=== PATIENT | male | born 1945 | race Caucasian/White ===

== ENCOUNTER 2016-12-02 10:31 | Inpatient (IN) | payer MEDICARE ==
[~2016-12-02] VITALS: Ht 175.3 cm; Wt 76.5 kg
--- NOTE | 2016-12-02 11:11 | RAD ---
Indication change in mental status. Suspect CVA. Protocol study. A single view of the chest was obtained. Comparison is made to an examination 03/08/2014. Heart and pulmonary vessels are unremarkable. Bipolar cardiac pacing device is noted. The lungs are clear. There is no pleural fluid or pneumothorax. IMPRESSION:: No acute finding apparent in the chest
--- NOTE | 2016-12-02 11:29 | EKG ---
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
--- NOTE | 2016-12-02 12:07 | RAD ---
Clinical indications: Altered mental status today. Comparison: March 08, 2014. Technique: Noncontrast axial cross sectional scanning of the head was performed. PQRS Compliance Statement: One or more of the following individualized dose reduction techniques were utilized for this examination: 1. Automated exposure control 2. Adjustment of the mA and/or kV according to patient size 3. Use of iterative reconstruction technique Findings: No acute intracranial hemorrhage or midline shift or mass-effect or hydrocephalus or extra-axial fluid collection is seen. Chronic periventricular white matter hypodensity seen consistent with chronic small vessel ischemic disease which is stable. No new focal hypodense area or sulci effacement is seen to indicate an acute infarct or edema radiographically. Generalized atrophy is again evident. No skull fracture or pneumocephalus is seen. There is moderate nodular mucosal thickening of the upper right maxillary sinus which is a new finding. The maxillary sinuses are not completely seen in this study. There is progressive opacification of the anterior right ethmoid sinus. Impression: No acute intracranial abnormality is seen. Progressive right maxillary and ethmoid sinusitis.
[2016-12-02 12:19] LABS: BASO % 1 % (0-3); EOS % 2 % (0-3); HEMATOCRIT 35.6 % (39.0-53.0); LYMPH # 0.5 x10^3/uL (1.0-4.8); LYMPH % 16 % (24-48); MEAN CORPUSCULAR HEMOGLOBIN 31 pg (25-35); MEAN CORPUSCULAR HGB CONC 34 g/dL (31-37); MEAN CORPUSCULAR VOLUME 92 fL (79-100); MONO % 17 % (0-9); NEUT % 65 % (31-73); PLATELET COUNT 95 x10^3/uL (140-400); RED BLOOD COUNT 3.85 x10^6/uL (4.30-5.70); RED CELL DISTRIBUTION WIDTH 14.1 % (11.5-14.5); WHITE BLOOD COUNT 3.3 x10^3/uL (4.0-11.0)
[2016-12-02 12:26] LABS: CALCIUM 8.7 mg/dL (8.5-10.1); CREATININE 0.6 mg/dL (0.7-1.3); GFR 132.4; POTASSIUM 3.4 mmol/L (3.5-5.1)
--- NOTE | 2016-12-02 12:29 | PHYS DOC ---
Past Medical History Past Medical History: COPD, CVA, Hypertension, Other Additional Past Medical Histor: emphysema, home o2, falls, chronic back and neck pain Past Surgical History: Other Additional Past Surgical Histo: hernia repair, ankle sx, back and neck sx Alcohol Use: None Drug Use: None Adult General Chief Complaint Chief Complaint: NEURO SYMPTOMS/DEFICITS HPI HPI 71-year-old male who lives at home with his presents secondary to concern about stroke. This morning when the tried to get him up he typically can help get himself dressed but he was listing to the right and unable to move right side of his body to help his . She then called his daughter came to the house and felt like he may have had a stroke. At baseline the patient is primarily bed bound but can get up at times and walked with a walker. Patient denies any headache. Patient really is unable to provide much history secondary to what sounds like dementia. There is been no report of fever chills or sweats. No nausea vomiting or diarrhea. [] Review of Systems Review of Systems Review of systems is unable to be obtained secondary to altered mental status Current Medications Current Medications Current Medications Medications (Trade) Dose Ordered Sig/Checo Start Time Stop Time Status Last Admin Dose Admin Acetaminophen (Tylenol) 650 mg PRN Q4HRS PRN 12/02/16 12:30 12/03/16 12:29 Ondansetron HCl (Zofran) 4 mg PRN Q8HRS PRN 12/02/16 12:30 12/03/16 12:29 Allergies Allergies Allergies Coded Allergies Type Severity Reaction Last Updated Verified No Known Drug Allergies 03/08/14 No Physical Exam Physical Exam Constitutional: Well developed, well nourished, no acute distress, non-toxic appearance. [] HENT: Normocephalic, atraumatic, bilateral external ears normal, oropharynx moist, no oral exudates, nose normal. [] Eyes: PERRLA, EOMI, conjunctiva normal, no discharge. [] Neck: Normal range of motion, no tenderness, supple, no stridor. [] Cardiovascular:Heart rate regular rhythm, no murmur [] Lungs & Thorax: Bilateral breath sounds clear to auscultation [] Abdomen: Bowel sounds normal, soft, no tenderness, no masses, no pulsatile masses. [] Skin: Warm, dry, no erythema, no rash. [] Back: No tenderness, no CVA tenderness. [] Extremities: No tenderness, no cyanosis, no clubbing, ROM intact, no edema. [] Neurologic: Alert and oriented X 3, normal motor function, normal sensory function, no focal deficits noted. [] Psychologic: Affect normal, judgement normal, mood normal. [] Current Patient Data Vital Signs Vital Signs Date Time Temp Pulse Resp B/P Pulse Ox O2 Delivery O2 Flow Rate FiO2 12/02/16 11:33 78 21 162/108 97 Nasal Cannula 3 12/02/16 10:31 98.7 98.7 Lab Values Laboratory Tests Test 12/02/16 12:00 White Blood Count 3.3x10^3/uL (4.0-11.0) L Red Blood Count 3.85x10^6/uL (4.30-5.70) L Hemoglobin 12.0g/dL (13.0-17.5) L Hematocrit 35.6% (39.0-53.0) L Mean Corpuscular Volume 92fL (79-100) Mean Corpuscular Hemoglobin 31pg (25-35) Mean Corpuscular Hemoglobin Concent 34g/dL (31-37) Red Cell Distribution Width 14.1% (11.5-14.5) Platelet Count 95x10^3/uL (140-400) L Neutrophils (%) (Auto) 65% (31-73) Lymphocytes (%) (Auto) 16% (24-48) L Monocytes (%) (Auto) 17% (0-9) H Eosinophils (%) (Auto) 2% (0-3) Basophils (%) (Auto) 1% (0-3) Neutrophils # (Auto) 2.1x10^3uL (1.8-7.7) Lymphocytes # (Auto) 0.5x10^3/uL (1.0-4.8) L Monocytes # (Auto) 0.5x10^3/uL (0.0-1.1) Eosinophils # (Auto) 0.1x10^3/uL (0.0-0.7) Basophils # (Auto) 0.0x10^3/uL (0.0-0.2) Prothrombin Time 14.1SEC (11.7-14.0) H Prothrombin Time INR 1.2 (0.8-1.1) H Sodium Level 135mmol/L (136-145) L Potassium Level 3.4mmol/L (3.5-5.1) L Chloride Level 92mmol/L (98-107) L Carbon Dioxide Level 40mmol/L (21-32) H Anion Gap 3 (6-14) L Blood Urea Nitrogen 11mg/dL (8-26) Creatinine 0.6mg/dL (0.7-1.3) L Estimated GFR (Cockcroft-Gault) 132.4 BUN/Creatinine Ratio 18 (6-20) Glucose Level 89mg/dL (70-99) Calcium Level 8.7mg/dL (8.5-10.1) Total Bilirubin 0.9mg/dL (0.2-1.0) Aspartate Amino Transferase (AST) 18U/L (15-37) Alanine Aminotransferase (ALT) 12U/L (16-63) L Alkaline Phosphatase 52U/L (46-116) Creatine Kinase 107U/L (39-308) Troponin I Quantitative < 0.017ng/mL (0.000-0.055) Total Protein 6.4g/dL (6.4-8.2) Albumin 2.9g/dL (3.4-5.0) L Albumin/Globulin Ratio 0.8 (1.0-1.7) L Vitamin B12 Level 452pg/mL (211-946) 25-Hydroxy Vitamin D Total 41.4ng/mL (30.0-100.0) Thyroid Stimulating Hormone (TSH) 0.744uIU/mL (0.358-3.74) Laboratory Tests 12/02/16 12:00 Laboratory Tests 12/02/16 12:00 EKG EKG [] Interpretation Time: EKG: Normal sinus rhythm left anterior fascicular block no obvious ischemic changes Radiology/Procedures Radiology/Procedures [] Impressions: PROCEDURE: HEAD WO CONTRAST Clinical indications: Altered mental status today. Comparison: March 08, 2014. Technique: Noncontrast axial cross sectional scanning of the head was performed. PQRS Compliance Statement: One or more of the following individualized dose reduction techniques were utilized for this examination: 1. Automated exposure control 2. Adjustment of the mA and/or kV according to patient size 3. Use of iterative reconstruction technique Findings: No acute intracranial hemorrhage or midline shift or mass-effect or hydrocephalus or extra-axial fluid collection is seen. Chronic periventricular white matter hypodensity seen consistent with chronic small vessel ischemic disease which is stable. No new focal hypodense area or sulci effacement is seen to indicate an acute infarct or edema radiographically. Generalized atrophy is again evident. No skull fracture or pneumocephalus is seen. There is moderate nodular mucosal thickening of the upper right maxillary sinus which is a new finding. The maxillary sinuses are not completely seen in this study. There is progressive opacification of the anterior right ethmoid sinus. Impression: No acute intracranial abnormality is seen. Progressive right maxillary and ethmoid sinusitis. Course & Med Decision Making Course & Med Decision Making Pertinent Labs and Imaging studies reviewed. (See chart for details) [ED course: Evaluation reveals a frail 71-year-old male who presented with concern for stroke. On arrival the patient was able to move his right arm and leg and follow commands adequately. If he had weakness on the right side is morning and that was the primary concern it has totally resolved. I do not believe the patient is a candidate for TPA. I do, however, feel like the patient needs to be admitted evaluated by PT OT and a discussion with the family about long-term placement for the patient. Patient and family are in agreement with this.] Dragon Disclaimer Dragon Disclaimer This electronic medical record was generated, in whole or in part, using a voice recognition dictation system. Departure Departure Impression: Primary Impression: Altered mental status Disposition: 09 ADMITTED INPATIENT Condition: STABLE Referrals: CARA FITZGERALD MD (PCP) Problem Qualifiers Primary Impression: Altered mental status Altered mental status type: unspecified Qualified Code: R41.82 - Altered mental status, unspecified LUPIS BURKS DO Dec 02, 2016 12:29
[2016-12-02] MEDS ORDERED: ACETAMINOPHEN 325 MG TABLET. PO PRN (12:30)
[2016-12-02] MEDS ORDERED: ONDANSETRON PF 4 MG/2 ML VIAL. IV PRN (12:30)
[2016-12-02 12:32] LABS: ALBUMIN 2.9 g/dL (3.4-5.0); ALBUMIN/GLOBULIN RATIO 0.8 (1.0-1.7); TOTAL BILIRUBIN 0.9 mg/dL (0.2-1.0); TOTAL PROTEIN 6.4 g/dL (6.4-8.2)
[2016-12-02 12:37] LABS: INR 1.2 (0.8-1.1); PROTHROMBIN TIME PATIENT 14.1 SEC (11.7-14.0)
[2016-12-02 13:24] LABS: BILIRUBIN,URINE SMALL (NEG); GLUCOSE,URINE NEGATIVE (NEG); NITRITE,URINE NEGATIVE (NEG); PROTEIN,URINE NEGATIVE (NEG-TRACE)
[2016-12-02 13:35] LABS: BACTERIA,URINE 0 /HPF (0-FEW); RBC,URINE 0 /HPF (0-2); SQUAMOUS EPITHELIAL CELL,UR FEW /LPF; WBC,URINE 0 /HPF (0-4)
[2016-12-02 15:02] VITALS: BP 163/89
[2016-12-02 15:04] VITALS: BP 163/89
--- NOTE | 2016-12-02 15:34 | ACF ---
Admission Forms Criteria MENTAL STATUS CHANGE Clinical Indications for Inpatient Care (Place 'X' for any and all applicable criteria): Ongoing inpatient care may be needed for ANY ONE of the following(1)(2)(3)(5)(6) : [X]I. Suspected serious etiology (eg, medical disorder, SAWMILL TALLY CLERK event) of mental status change [ ]II. Danger to self or others not manageable at lower level of care [ ]III. Grave disability (eg, inability to perform self care necessary at lower level of care) [ ]IV. Agitation or inappropriate behavior interfering with care for primary condition (eg, attempting to discontinue lines or drains prematurely, unable to cooperate with respiratory care) [ ]V. Delirium [A] [D][E] as described by ANY ONE of the following(26): [ ]a) Delirium due to alcohol or sedative [F] withdrawal [ ]b) Delirium of uncertain etiology that has not responded to appropriate empiric treatment [ ]c) Delirium that prevents performance of a life-sustaining function (eg, feeding or hydrating oneself) [ ]. General contraindications and/or Inappropriate clinical situations for Observational Care in patients with Mental Status Change, when ANY ONE of the following is required: [ ]a) Prediction of prolongation of LOS based on ANY ONE of the following may be considered as a contraindication for observational care 2, 3, 4, 5, 6, 7, 8, 9, 10, 11 [ ]i) Age > 65 yrs. [ ]ii) Patient arriving by ambulance [ ]iii) Patient with high acuity [ ]iv) Patient requiring vital sign monitoring [ ]v) Patient on IV medication [ ]b) Systolic blood pressures 180mmHg 3,12 [ ]c) Patient with altered mental status including delirium and other alteration of consciousness, (3) [ ]d) Patient whose discharge disposition will be to a care home home or rehabilitation home should not be managed in Emergency Department Observation Unit. CMS rule requires 3 days hospital stay before such placement.3,13 [ ]e) Patient with failure to thrive due to broad array of etiologies 3,16,17 [ ]f) Inability to ambulate 3,14 Extended stay beyond goal length of stay for the primary condition may be needed until ALL of the following are present(3)(5): [ ]a) Underlying medical etiology of mental status change is absent, or has been established and adequately treated [ ]b) Danger to self or others is absent or manageable at lower level of care. [ ]c) Behavior crisis management, including physical or chemical restraints, is not required or available at lower level of car [ ]d) Substance or alcohol withdrawal is absent or manageable at lower level of care. [ ]e) Behavioral symptoms (eg, agitation, somnolence, inappropriate behavior) are absent, or are manageable at lower level of care. The original [facility] content created by [facility] has been revised. The portions of the content which have been revised are identified through the use of italic text or in bold, and [facility] has neither reviewed nor approved the modified material. All other unmodified content is copyright [facility]. Please see references footnoted in the original [facility] edition 2016 Admission Criteria Met?: Yes MO GUTIÉRREZ Dec 02, 2016 15:34
--- NOTE | 2016-12-02 16:14 | PDOC2 ---
NEUROLOGY CONSULT Date of Admission Date of Admission DATE: 12/02/16 TIME: 16:01 Reason for Consult Reason for Consult: IMPRESSION: Worsening of right side weakness. CVA syndrome. Metabolic encephalopathy. Confusion. 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 HTN COPD O2 dependent. Chronic neck and back pain. Right maxillary and ethmoid sinusitis. RECOMMENDATIONS/PLAN: Repeat HCT in am. MRI is contraindicated due to pacemaker. Carotid A US + Doppler. Echo + Bubble study. Fasting lipid panel in a.m. Other labs: see orders. EEG Continue ASA 325 mg daily at the present time, will change to Plavix if has new stroke. Treat medical diseases. OT/PT. Discussed with his and son-in-law at bedside. HISTORY OF THE PRESENT ILLNESS: 71-y-old male patient with above medical diseases and old stroke with right side hemiparesis per his . He can walk with walker usually, but he was unable to get up this morning due to increased weakness inhis right side UE and LE. He was also noted by his to have mental status changes, confusion, and difficulty speaking to be brought to the ER. No new cranial nerve deficits. He is not a candidate of TPA due to onset time of symptoms was unknown. PAST MEDICAL HISTORY: Please see above. PAST SURGERY HISTORY: Pacemaker Placement Hernia Repair, ALLERGY: Reviewed. MEDICATIONS: Refer to [facility] FAMILY HISTORY: Non contributory. SOCIAL HISTORY: Lives at home. Denies current smoking, drinking, and illicit drug use. REVIEW OF SYSTEMS: Constitutional: No malnutrition, weight loss, cachexia. Head: No traumatic brain or head injury. Skin: No edema, or rash. Ear: No infection, tinnitus. Eyes: No vision loss or color blindness. Nose: No bleeding or purulent discharges. Hearing: Hearing decrease. Neck: Neck pain. Cardiac: Pacemaker Placement Pulmonary: No COPD. GI: No GI ulcer, GI bleeding. Urinary/genital: UTI. Endocrinologic: No cousin face, craniofacial dysmorphism, polydactyly, goiter Skeletomuscular: Chronic right side weakness. Neurological: see HP. Psychiatric: Denies drug use/abuse. Otherwise, not [id number] review of systems. PHYSICAL EXAMINATION: General appearance is in subacute distress. HEENT: Normocephalic and nontraumatic. Eyes, nose, ears, and throat are unremarkable. Neck is supple. No lymphadenopathy. No bruits are heard over the carotid artery. No crepitus. Cardiovascular: S1, S2, regular rate and rhythm. Pulmonary: Clear to auscultation bilaterally. Abdomen: Bowel sounds are positive. Extremities: No rash, lesions, or edema. No restriction of range of motion NEUROLOGICAL EXAMINATION: Awake. Confused. Not oriented to time, but knows place and person. PERRL. EOMI. CN: no focal findings. Muscle tone: Mildly increased. Muscle strength: 4+ right side, 5 lefts mohinder. DTR: 2- Plantar reflex: Neutral response bilaterally Gait: not examined in bed. Sensory exam: no acute abnormal findings. No obvious cerebellar signs elicited. Not able to perform F-T-N test. Current Medications Current Medications Current Medications Ondansetron HCl (Zofran) 4 mg PRN Q8HRS PRN IV NAUSEA/VOMITING; Start 12/02/16 at 12:30; Stop 12/03/16 at 12:29 Acetaminophen (Tylenol) 650 mg PRN Q4HRS PRN PO FEVER; Start 12/02/16 at 12:30; Stop 12/03/16 at 12:29 Allergies Allergies: Coded Allergies: No Known Drug Allergies (Unverified , 03/08/14) Vitals VITALS Vital Signs Date Time Temp Pulse Resp B/P Pulse Ox O2 Delivery O2 Flow Rate FiO2 12/02/16 15:04 98.9 68 18 163/89 99 Nasal Cannula 98.9 12/02/16 13:31 3 Labs Labs Laboratory Tests Test 12/02/16 12:00 12/02/16 13:00 White Blood Count 3.3x10^3/uL (4.0-11.0) Red Blood Count 3.85x10^6/uL (4.30-5.70) Hemoglobin 12.0g/dL (13.0-17.5) Hematocrit 35.6% (39.0-53.0) Mean Corpuscular Volume 92fL (79-100) Mean Corpuscular Hemoglobin 31pg (25-35) Mean Corpuscular Hemoglobin Concent 34g/dL (31-37) Red Cell Distribution Width 14.1% (11.5-14.5) Platelet Count 95x10^3/uL (140-400) Neutrophils (%) (Auto) 65% (31-73) Lymphocytes (%) (Auto) 16% (24-48) Monocytes (%) (Auto) 17% (0-9) Eosinophils (%) (Auto) 2% (0-3) Basophils (%) (Auto) 1% (0-3) Neutrophils # (Auto) 2.1x10^3uL (1.8-7.7) Lymphocytes # (Auto) 0.5x10^3/uL (1.0-4.8) Monocytes # (Auto) 0.5x10^3/uL (0.0-1.1) Eosinophils # (Auto) 0.1x10^3/uL (0.0-0.7) Basophils # (Auto) 0.0x10^3/uL (0.0-0.2) Prothrombin Time 14.1SEC (11.7-14.0) Prothromb Time International Ratio 1.2 (0.8-1.1) Sodium Level 135mmol/L (136-145) Potassium Level 3.4mmol/L (3.5-5.1) Chloride Level 92mmol/L (98-107) Carbon Dioxide Level 40mmol/L (21-32) Anion Gap 3 (6-14) Blood Urea Nitrogen 11mg/dL (8-26) Creatinine 0.6mg/dL (0.7-1.3) Estimated GFR (Cockcroft-Gault) 132.4 BUN/Creatinine Ratio 18 (6-20) Glucose Level 89mg/dL (70-99) Calcium Level 8.7mg/dL (8.5-10.1) Total Bilirubin 0.9mg/dL (0.2-1.0) Aspartate Amino Transf (AST/SGOT) 18U/L (15-37) Alanine Aminotransferase (ALT/SGPT) 12U/L (16-63) Alkaline Phosphatase 52U/L (46-116) Creatine Kinase 107U/L (39-308) Troponin I Quantitative < 0.017ng/mL (0.000-0.055) Total Protein 6.4g/dL (6.4-8.2) Albumin 2.9g/dL (3.4-5.0) Albumin/Globulin Ratio 0.8 (1.0-1.7) Thyroid Stimulating Hormone (TSH) 0.744uIU/mL (0.358-3.74) Urine Collection Type Unknown Urine Color [place] Urine Clarity Clear Urine pH 7.0 Urine Specific [place] 1.025 Urine Protein Negativemg/dL (NEG-TRACE) Urine Glucose (UA) Negativemg/dL (NEG) Urine Ketones (Stick) 15mg/dL (NEG) Urine Blood Negative (NEG) Urine Nitrite Negative (NEG) Urine Bilirubin Small (NEG) Urine Urobilinogen Dipstick 4.0mg/dL (0.2 mg/dL) Urine Leukocyte Esterase Small (NEG) Urine RBC 0/HPF (0-2) Urine WBC 0/HPF (0-4) Urine Squamous Epithelial Cells Few/LPF Urine Bacteria 0/HPF (0-FEW) Laboratory Tests Test 12/02/16 12:00 12/02/16 13:00 White Blood Count 3.3x10^3/uL (4.0-11.0) Red Blood Count 3.85x10^6/uL (4.30-5.70) Hemoglobin 12.0g/dL (13.0-17.5) Hematocrit 35.6% (39.0-53.0) Mean Corpuscular Volume 92fL (79-100) Mean Corpuscular Hemoglobin 31pg (25-35) Mean Corpuscular Hemoglobin Concent 34g/dL (31-37) Red Cell Distribution Width 14.1% (11.5-14.5) Platelet Count 95x10^3/uL (140-400) Neutrophils (%) (Auto) 65% (31-73) Lymphocytes (%) (Auto) 16% (24-48) Monocytes (%) (Auto) 17% (0-9) Eosinophils (%) (Auto) 2% (0-3) Basophils (%) (Auto) 1% (0-3) Neutrophils # (Auto) 2.1x10^3uL (1.8-7.7) Lymphocytes # (Auto) 0.5x10^3/uL (1.0-4.8) Monocytes # (Auto) 0.5x10^3/uL (0.0-1.1) Eosinophils # (Auto) 0.1x10^3/uL (0.0-0.7) Basophils # (Auto) 0.0x10^3/uL (0.0-0.2) Prothrombin Time 14.1SEC (11.7-14.0) Prothromb Time International Ratio 1.2 (0.8-1.1) Sodium Level 135mmol/L (136-145) Potassium Level 3.4mmol/L (3.5-5.1) Chloride Level 92mmol/L (98-107) Carbon Dioxide Level 40mmol/L (21-32) Anion Gap 3 (6-14) Blood Urea Nitrogen 11mg/dL (8-26) Creatinine 0.6mg/dL (0.7-1.3) Estimated GFR (Cockcroft-Gault) 132.4 BUN/Creatinine Ratio 18 (6-20) Glucose Level 89mg/dL (70-99) Calcium Level 8.7mg/dL (8.5-10.1) Total Bilirubin 0.9mg/dL (0.2-1.0) Aspartate Amino Transf (AST/SGOT) 18U/L (15-37) Alanine Aminotransferase (ALT/SGPT) 12U/L (16-63) Alkaline Phosphatase 52U/L (46-116) Creatine Kinase 107U/L (39-308) Troponin I Quantitative < 0.017ng/mL (0.000-0.055) Total Protein 6.4g/dL (6.4-8.2) Albumin 2.9g/dL (3.4-5.0) Albumin/Globulin Ratio 0.8 (1.0-1.7) Thyroid Stimulating Hormone (TSH) 0.744uIU/mL (0.358-3.74) Urine Collection Type Unknown Urine Color [place] Urine Clarity Clear Urine pH 7.0 Urine Specific [place] 1.025 Urine Protein Negativemg/dL (NEG-TRACE) Urine Glucose (UA) Negativemg/dL (NEG) Urine Ketones (Stick) 15mg/dL (NEG) Urine Blood Negative (NEG) Urine Nitrite Negative (NEG) Urine Bilirubin Small (NEG) Urine Urobilinogen Dipstick 4.0mg/dL (0.2 mg/dL) Urine Leukocyte Esterase Small (NEG) Urine RBC 0/HPF (0-2) Urine WBC 0/HPF (0-4) Urine Squamous Epithelial Cells Few/LPF Urine Bacteria 0/HPF (0-FEW) AMRITA CANSECO MD Dec 02, 2016 16:14
[2016-12-02] MEDS ORDERED: POTASSIUM CHLORIDE 20 MEQ TABLET.ER. PO ONE (16:30)
[2016-12-02] MEDS ORDERED: FINA5TAB4 PO (16:41)
[2016-12-02] MEDS ORDERED: NIFE30TA9 PO (16:41)
[2016-12-02] MEDS ORDERED: LIDO700A27 TP (16:41)
[2016-12-02] MEDS ORDERED: NITR0.4T SL (16:41)
[2016-12-02] MEDS ORDERED: HYDR12.53 PO (16:41)
[2016-12-02] MEDS ORDERED: CHOL10003 PO (16:41)
[2016-12-02] MEDS ORDERED: LOSA100T6 PO (16:41)
[2016-12-02] MEDS ORDERED: BRIM5DRO4 OP (16:41)
[2016-12-02] MEDS ORDERED: SENN1TAB37 PO (16:41)
[2016-12-02] MEDS ORDERED: DORZ10DR3 EACHEYE (16:41)
[2016-12-02] MEDS ORDERED: PROAIR HFA8.5 GM INH (16:41)
[2016-12-02] MEDS ORDERED: CARV25TA2 PO (16:41)
[2016-12-02] MEDS ORDERED: BUDE10.2 IH (16:41)
[2016-12-02] MEDS ORDERED: NICO4GUM3 BC (16:41)
[2016-12-02] MEDS ORDERED: VALP250D PO ×2 (16:41)
[2016-12-02] MEDS ORDERED: GABA-585 PO (16:41)
[2016-12-02] MEDS ORDERED: BUPR75TA6 PO (16:41)
[2016-12-02] MEDS ORDERED: LATA2.5D3 EACHEYE (16:41)
[2016-12-02] MEDS ORDERED: DULO60CA44 PO (16:41)
[2016-12-02] MEDS ORDERED: ASPI325T70 PO (16:41)
[2016-12-02] MEDS ORDERED: NON FORMULARY ITEM (Albuterol Sulfate (Proair Hfa Inhaler) 1 PUFF) INH PRN (19:00)
--- NOTE | 2016-12-02 19:02 | PDOC1 ---
History and Physical Date of Admission Date of Admission DATE: 12/02/16 TIME: 18:54 Identification/Chief Complaint Chief Complaint right arm weakness Source Source: Chart review, Patient History of Present Illness History of Present Illness MR. Avery awoke today with new right arm weakness, and was noted by family to be "listing to the right" Right sided weakness with difficulty ambulating timeline of onset was unclear, not t-PA candidate pt seen by Neuro, and right arm str is improving, but not at baseline he reports feeling improved Past Medical History Cardiovascular: HTN CENTRAL NERVOUS SYSTEM: CVA ENT: Other Renal/: Benign prostatic enlarg. Family History Family History: No Significant Social History Smoke: Quit ALCOHOL: none Drugs: None Current Problem List Problem List Problems Medical Problems: (1) Altered mental status Status: Acute Problems: Current Medications Current Medications Current Medications Ondansetron HCl (Zofran) 4 mg PRN Q8HRS PRN IV NAUSEA/VOMITING; Start 12/02/16 at 12:30; Stop 12/03/16 at 12:29 Acetaminophen (Tylenol) 650 mg PRN Q4HRS PRN PO FEVER; Start 12/02/16 at 12:30; Stop 12/03/16 at 12:29 Potassium Chloride (Klor-Con) 40 meq 1X ONCE PO Last administered on 12/02/16t 17:53; Start 12/02/16 at 16:30; Stop 12/02/16 at 16:31; Status DC Albuterol/ Ipratropium (Duoneb) 3 ml RTQID NEB ; Start 12/02/16 at 20:00 Active Scripts Active Reported Aspirin Buffered 325 Mg Tab (Aspirin/Calcium Carbonate/Mag) 325 Mg Tablet 325 Mg PO DAILY Bupropion Hcl 75 Mg Tablet 0.5 Tab PO DAILY Dorzolamide Hcl 10 Ml Drops 1 Drop EACHEYE BID Symbicort 160-4.5 Mcg Inhaler (Budesonide/Formoterol Fumarate) 10.2 Gm Hfa.aer.ad 2 Puff IH BID Brimonidine Tartrate 5 Ml Drops 5 Ml OP Proair Hfa Inhaler (Albuterol Sulfate) 8.5 Gm Hfa.aer.ad 1 Puff INH PRN Q6HRS PRN Latanoprost 2.5 Ml Drops 1 Drop EACHEYE QHS Valproic Acid (Valproate Sodium) 250 Mg/5 Ml Disp.syrin 500 Mg PO DAILY Valproic Acid (Valproate Sodium) 250 Mg/5 Ml Disp.syrin 750 Mg PO QHS Nitrostat (Nitroglycerin) 0.4 Mg Tab.subl 1 Tab SL UD Nifedipine Er (Nifedipine) 30 Mg Tablet.er 1 Tab PO BID Nicotine Gum (Nicotine Polacrilex) 4 Mg Gum 4 Mg BC Q1HR PRN Losartan Potassium 100 Mg Tablet 100 Mg PO DAILY Lidocaine 700 Mg Adh..patch 700 Mg TP Hydrochlorothiazide Capsule (Hydrochlorothiazide) 12.5 Mg Capsule 2 Cap PO DAILY Gabapentin 100 Mg Capsule 100 Mg PO QID Finasteride 5 Mg Tablet 1 Tab PO DAILY Duloxetine Hcl 60 Mg Capsule.dr 60 Mg PO DAILY Sennosides-Docusate Sodium Tab (Sennosides/Docusate Sodium) 1 Each Tablet 1 Each PO Vitamin D3 (Cholecalciferol (Vitamin D3)) 1,000 Unit Tablet 1 Tab PO DAILY Carvedilol 25 Mg Tablet 1 Tab PO BID Allergies Allergies: Coded Allergies: No Known Drug Allergies (Unverified , 03/08/14) ROS General: No: Appetite, Chills, Fatigue, Malaise, Night Sweats, Other PSYCHOLOGICAL ROS: No: Anxiety, Behavioral Disorder, Concentration difficultie , Decreased libido, Depression, Disorientation, Hallucinations, Hostility, Irritablity, Memory difficulties, Mood Swings, Obsessive thoughts, Other, Physical abuse, Sexual abuse, Sleep disturbances, Suicidal ideation Eyes: No Blurry vision, No Decreased vision, No Double vision, No Dry eyes, No Excessive tearing, No Eye Pain, No Itchy Eyes, No Loss of vision, No Other, No Photophobia, No Scotomata, No Uses contacts, No Uses glasses HEENT: No: Epistaxis, Heacaches, Hearing change, Nasal congestion, Nasal discharge, Oral lesions, Other, Sinus pain, Sneezing, Snoring, Sore Throat, Tinnitus, Vertigo, Visual Changes, Vocal changes Cardiovascular: No Chest Pain, No Edema, No Lt Headedness, No Orthopnea, No Other, No Palpitations, No Paroxysmal Noc. Dyspnea Gastrointestinal: No Abdominal Pain, No Constipation, No Diarrhea, No Hematochezia, No Melena, No Nausea, No Other, No Vomiting Genitourinary: No , No , No , No , No , No , No , No Discharge, No Dysuria, No Flank Pain, No Frequency, No Hematuria, No Incontinence, No Other, No Pain, No Retention, No Urgency Musculoskeletal: Yes Gait Disturbance, Yes Muscular Weakness, No Joint Pain, No Joint Stiffness, No Joint Swelling, No Muscle Pain, No Other, No Pain In:, No Swelling In: Neurological: Yes Gait Disturbance, No Behavorial Changes, No Bowel/Bladder ControlChng, No Confusion, No Dizziness, No Headaches, No Impaired Coord/balance, No Memory Loss, No Numbness/ Tingling, No Other, No Seizures, No Speech Problems, No Tremors, No Visual Changes, No Weakness Skin: No Acne, No Dry Skin, No Eczema, No Hair Changes, No Lumps, No Mole Changes, No Mottling, No Nail Changes, No Other, No Pruritus, No Rash, No Skin Lesion Changes Physical Exam General: Alert, Oriented X3, Cooperative, No acute distress HEENT: Atraumatic, PERRLA, EOMI, Mucous membr. 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, (5/5) but relatively very poor in relation to left hand, which was painfully strong, ) Psych/Mental Status: Mental status NL, Mood NL Vitals Vitals Vital Signs Date Time Temp Pulse Resp B/P Pulse Ox O2 Delivery O2 Flow Rate FiO2 12/02/16 15:04 98.9 68 18 163/89 99 Nasal Cannula 98.9 12/02/16 13:31 3 Labs Labs Laboratory Tests Test 12/02/16 12:00 12/02/16 13:00 White Blood Count 3.3x10^3/uL (4.0-11.0) Red Blood Count 3.85x10^6/uL (4.30-5.70) Hemoglobin 12.0g/dL (13.0-17.5) Hematocrit 35.6% (39.0-53.0) Mean Corpuscular Volume 92fL (79-100) Mean Corpuscular Hemoglobin 31pg (25-35) Mean Corpuscular Hemoglobin Concent 34g/dL (31-37) Red Cell Distribution Width 14.1% (11.5-14.5) Platelet Count 95x10^3/uL (140-400) Neutrophils (%) (Auto) 65% (31-73) Lymphocytes (%) (Auto) 16% (24-48) Monocytes (%) (Auto) 17% (0-9) Eosinophils (%) (Auto) 2% (0-3) Basophils (%) (Auto) 1% (0-3) Neutrophils # (Auto) 2.1x10^3uL (1.8-7.7) Lymphocytes # (Auto) 0.5x10^3/uL (1.0-4.8) Monocytes # (Auto) 0.5x10^3/uL (0.0-1.1) Eosinophils # (Auto) 0.1x10^3/uL (0.0-0.7) Basophils # (Auto) 0.0x10^3/uL (0.0-0.2) Prothrombin Time 14.1SEC (11.7-14.0) Prothromb Time International Ratio 1.2 (0.8-1.1) Sodium Level 135mmol/L (136-145) Potassium Level 3.4mmol/L (3.5-5.1) Chloride Level 92mmol/L (98-107) Carbon Dioxide Level 40mmol/L (21-32) Anion Gap 3 (6-14) Blood Urea Nitrogen 11mg/dL (8-26) Creatinine 0.6mg/dL (0.7-1.3) Estimated GFR (Cockcroft-Gault) 132.4 BUN/Creatinine Ratio 18 (6-20) Glucose Level 89mg/dL (70-99) Calcium Level 8.7mg/dL (8.5-10.1) Total Bilirubin 0.9mg/dL (0.2-1.0) Aspartate Amino Transf (AST/SGOT) 18U/L (15-37) Alanine Aminotransferase (ALT/SGPT) 12U/L (16-63) Alkaline Phosphatase 52U/L (46-116) Creatine Kinase 107U/L (39-308) Troponin I Quantitative < 0.017ng/mL (0.000-0.055) Total Protein 6.4g/dL (6.4-8.2) Albumin 2.9g/dL (3.4-5.0) Albumin/Globulin Ratio 0.8 (1.0-1.7) Thyroid Stimulating Hormone (TSH) 0.744uIU/mL (0.358-3.74) Urine Collection Type Unknown Urine Color [place] Urine Clarity Clear Urine pH 7.0 Urine Specific [place] 1.025 Urine Protein Negativemg/dL (NEG-TRACE) Urine Glucose (UA) Negativemg/dL (NEG) Urine Ketones (Stick) 15mg/dL (NEG) Urine Blood Negative (NEG) Urine Nitrite Negative (NEG) Urine Bilirubin Small (NEG) Urine Urobilinogen Dipstick 4.0mg/dL (0.2 mg/dL) Urine Leukocyte Esterase Small (NEG) Urine RBC 0/HPF (0-2) Urine WBC 0/HPF (0-4) Urine Squamous Epithelial Cells Few/LPF Urine Bacteria 0/HPF (0-FEW) Laboratory Tests Test 12/02/16 12:00 12/02/16 13:00 White Blood Count 3.3x10^3/uL (4.0-11.0) Red Blood Count 3.85x10^6/uL (4.30-5.70) Hemoglobin 12.0g/dL (13.0-17.5) Hematocrit 35.6% (39.0-53.0) Mean Corpuscular Volume 92fL (79-100) Mean Corpuscular Hemoglobin 31pg (25-35) Mean Corpuscular Hemoglobin Concent 34g/dL (31-37) Red Cell Distribution Width 14.1% (11.5-14.5) Platelet Count 95x10^3/uL (140-400) Neutrophils (%) (Auto) 65% (31-73) Lymphocytes (%) (Auto) 16% (24-48) Monocytes (%) (Auto) 17% (0-9) Eosinophils (%) (Auto) 2% (0-3) Basophils (%) (Auto) 1% (0-3) Neutrophils # (Auto) 2.1x10^3uL (1.8-7.7) Lymphocytes # (Auto) 0.5x10^3/uL (1.0-4.8) Monocytes # (Auto) 0.5x10^3/uL (0.0-1.1) Eosinophils # (Auto) 0.1x10^3/uL (0.0-0.7) Basophils # (Auto) 0.0x10^3/uL (0.0-0.2) Prothrombin Time 14.1SEC (11.7-14.0) Prothromb Time International Ratio 1.2 (0.8-1.1) Sodium Level 135mmol/L (136-145) Potassium Level 3.4mmol/L (3.5-5.1) Chloride Level 92mmol/L (98-107) Carbon Dioxide Level 40mmol/L (21-32) Anion Gap 3 (6-14) Blood Urea Nitrogen 11mg/dL (8-26) Creatinine 0.6mg/dL (0.7-1.3) Estimated GFR (Cockcroft-Gault) 132.4 BUN/Creatinine Ratio 18 (6-20) Glucose Level 89mg/dL (70-99) Calcium Level 8.7mg/dL (8.5-10.1) Total Bilirubin 0.9mg/dL (0.2-1.0) Aspartate Amino Transf (AST/SGOT) 18U/L (15-37) Alanine Aminotransferase (ALT/SGPT) 12U/L (16-63) Alkaline Phosphatase 52U/L (46-116) Creatine Kinase 107U/L (39-308) Troponin I Quantitative < 0.017ng/mL (0.000-0.055) Total Protein 6.4g/dL (6.4-8.2) Albumin 2.9g/dL (3.4-5.0) Albumin/Globulin Ratio 0.8 (1.0-1.7) Thyroid Stimulating Hormone (TSH) 0.744uIU/mL (0.358-3.74) Urine Collection Type Unknown Urine Color [place] Urine Clarity Clear Urine pH 7.0 Urine Specific [place] 1.025 Urine Protein Negativemg/dL (NEG-TRACE) Urine Glucose (UA) Negativemg/dL (NEG) Urine Ketones (Stick) 15mg/dL (NEG) Urine Blood Negative (NEG) Urine Nitrite Negative (NEG) Urine Bilirubin Small (NEG) Urine Urobilinogen Dipstick 4.0mg/dL (0.2 mg/dL) Urine Leukocyte Esterase Small (NEG) Urine RBC 0/HPF (0-2) Urine WBC 0/HPF (0-4) Urine Squamous Epithelial Cells Few/LPF Urine Bacteria 0/HPF (0-FEW) VTE Prophylaxis Ordered VTE Prophylaxis Devices: Yes VTE Pharmacological Prophylaxi: No Assessment/Plan Assessment/Plan acute CVA, CVA syndrome. improving already Metabolic encephalopathy. prior known CVA with residual right hemiparesis HTN COPD admit, Neuro w.u with echo, carotids, lipids Pt and OT and speech BPH, finasteride Glaucoma, gtt ALLAN SWENSON MD Dec 02, 2016 19:02
[2016-12-02 19:10] VITALS: BP 160/92
[2016-12-02] MEDS ORDERED: NICOTINE POLACRILEX 2MG GUM PACKAGE of 12. BC PRN (19:15)
[2016-12-02] MEDS ORDERED: ALBUTEROL SULFATE 2.5 MG/3 ML NEBU. NEB PRN (19:15)
[2016-12-02] MEDS ORDERED: ALBUTEROL SULFATE 2.5 MG/3 ML NEBU. NEB SCH (20:00)
[2016-12-02] MEDS ORDERED: NON FORMULARY ITEM (Budesonide/Formoterol Fumarate (Symbicort 160-4.5 Mcg Inhaler) 2 PUFF) IH SCH (21:00)
[2016-12-02] MEDS: IPRATRPIUM/ALBUTEROL 0.5/2.5MG 3 ML NEBU. NEB SCH (21:01)
[2016-12-02] MEDS: BUDESONIDE 0.5 MG/2 ML NEBU NEB SCH (21:01)
[2016-12-02] MEDS: HYDROCHLOROTHIAZIDE 12.5 MG CAPSULE. PO SCH (21:38)
[2016-12-02] MEDS: CARVEDILOL 12.5 MG TABLET PO SCH (21:38)
[2016-12-02] MEDS: LOSARTAN POTASSIUM 50 MG TABLET. PO SCH (21:38)
[2016-12-02] MEDS: VALPROIC ACID (AS SODIUM SALT) 250 MG/5 ML SOLUTION. PO SCH (21:43)
[2016-12-02] MEDS: BRIMONIDINE 0.2% OPHTH SOLUTION 5ML BOTTLE. OU SCH (21:43)
[2016-12-02] MEDS: LATANOPROST 0.005% OPHTH SOLUTION 2.5ML BOTTLE. OU SCH (21:43)
[2016-12-02] MEDS: DORZOLAMIDE 2% OPHTH SOLUTION 10ML BOTTLE. OU SCH (21:43)
[2016-12-02] MEDS: GABAPENTIN 100 MG CAPSULE. PO SCH (21:44)
[2016-12-02] MEDS: NIFEDIPINE ER 30 MG TAB.ER.24H PO SCH (21:44)
[2016-12-02 23:28] VITALS: BP 115/80
[2016-12-03 02:16] LABS: VITAMIN D25(OH)TOTAL 41.4 ng/mL (30.0-100.0)
[2016-12-03 03:10] VITALS: BP 125/61
[2016-12-03 07:00] VITALS: BP 158/81
[2016-12-03 07:15] LABS: BASO % 1 % (0-3); EOS % 2 % (0-3); HEMATOCRIT 38.6 % (39.0-53.0); HEMOGLOBIN 12.9 g/dL (13.0-17.5); LYMPH # 0.9 x10^3/uL (1.0-4.8); LYMPH % 36 % (24-48); MEAN CORPUSCULAR HEMOGLOBIN 31 pg (25-35); MEAN CORPUSCULAR HGB CONC 33 g/dL (31-37); MEAN CORPUSCULAR VOLUME 93 fL (79-100); MONO % 17 % (0-9); NEUT % 44 % (31-73); PLATELET COUNT 89 x10^3/uL (140-400); RED BLOOD COUNT 4.17 x10^6/uL (4.30-5.70); RED CELL DISTRIBUTION WIDTH 14.2 % (11.5-14.5); WHITE BLOOD COUNT 2.6 x10^3/uL (4.0-11.0)
[2016-12-03] MEDS: IPRATRPIUM/ALBUTEROL 0.5/2.5MG 3 ML NEBU. NEB SCH ×4 (07:21→21:03)
[2016-12-03] MEDS: BUDESONIDE 0.5 MG/2 ML NEBU NEB SCH ×2 (07:22→21:05)
[2016-12-03 07:34] LABS: CHOLESTEROL/HDL RATIO 3.4
[2016-12-03 07:37] LABS: CALCIUM 8.7 mg/dL (8.5-10.1); CREATININE 0.6 mg/dL (0.7-1.3); GFR 132.4; POTASSIUM 3.1 mmol/L (3.5-5.1)
[2016-12-03] MEDS: LIDOCAINE (700MG/PATCH) PATCH. TP SCH ×2 (09:00→10:45)
--- NOTE | 2016-12-03 09:04 | RAD ---
Clinical indications: Speech difficulty. Hypertension. Diabetes. Headache.. Comparison: 2012. Duplex sonography of the cervical portion of both carotid arteries was performed including color flow imaging and spectral waveform analysis with flow velocity measurement and balbuena scale evaluation. Right side: Peak systolic flow velocity of the CCA is 65 cm/sec. Peak systolic flow velocity of the ICA is 57 cm/sec. Thus, the ICA/CCA ratio is less than 1.0. Peak end diastolic flow velocity of the ICA is 15 cm/sec. The peak systolic velocity of the ECA is 91 cm/sec. Left side: Peak systolic flow velocity of the CCA is 57 cm/sec. Peak systolic flow velocity of the ICA is 80 cm/sec. Thus, the ICA/CCA ratio is 1.4. Peak end diastolic flow velocity of the ICA is 19 cm/sec. Peak systolic flow velocity of the ECA is 54 cm/sec. Plaque formation is seen within the right mid CCA and within the right carotid bulb and proximal right ICA which is less than 40%. Mild plaque formation is seen within the mid CCA and the carotid bulb and proximal ECA and ICA on the left side which is less than 40%. Antegrade vertebral flow is seen bilaterally. The measurements were made using the NASCET criteria. Impression:Mild plaque formation is seen within the carotid bifurcations bilaterally which is less than 40%.. Since 2012, the plaque formation within the left ICA is less prominent. This could be due to carotid endarterectomy in the interim or could be due to differences in technologist measurement between the 2 studies. No high flow velocities are seen today.
[2016-12-03] MEDS: VALPROIC ACID (AS SODIUM SALT) 250 MG/5 ML SOLUTION. PO SCH ×2 (10:42→20:53)
[2016-12-03] MEDS: DULOXETINE HCL 30 MG CAPSULE.DR. PO SCH (10:42)
[2016-12-03] MEDS: HYDROCHLOROTHIAZIDE 12.5 MG CAPSULE. PO SCH (10:43)
[2016-12-03] MEDS: CARVEDILOL 12.5 MG TABLET PO SCH ×2 (10:43→17:49)
[2016-12-03] MEDS: FINASTERIDE 5 MG TABLET PO SCH (10:43)
[2016-12-03] MEDS: GABAPENTIN 100 MG CAPSULE. PO SCH ×4 (10:43→20:53)
[2016-12-03] MEDS: SENNOSIDES/DOCUSATE 8.6/50MG TABLET. PO SCH (10:43)
[2016-12-03] MEDS: LOSARTAN POTASSIUM 50 MG TABLET. PO SCH (10:43)
[2016-12-03] MEDS: NIFEDIPINE ER 30 MG TAB.ER.24H PO SCH ×2 (10:43→20:56)
[2016-12-03] MEDS: DORZOLAMIDE 2% OPHTH SOLUTION 10ML BOTTLE. OU SCH ×2 (10:44→20:53)
[2016-12-03] MEDS: buPROPion 75 MG TABLET PO SCH (10:44)
[2016-12-03] MEDS: BRIMONIDINE 0.2% OPHTH SOLUTION 5ML BOTTLE. OU SCH ×2 (10:44→20:53)
[2016-12-03 11:00] VITALS: BP 179/89
--- NOTE | 2016-12-03 11:27 | PDOC ---
PROGRESS NOTES Chief Complaint Chief Complaint 1. CVA Syndrome 2. Metabolic Encephalopathy 3. HTN 4. 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 BPH 6. Glaucoma 7. Hyperlipidemia 8. Hx of Seizure 9. Depression History of Present Illness History of Present Illness Mr. Avery was resting comfortably in bed this AM upon arrival to his room. This morning he is pleasantly confused and able to tell his healthcare team his name and answer some questions. Unable to tell us what year it is . Today he still admits to some weakness on his right side and also feeling unsteady when he stands along with some fatigue. 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 5/5 bilaterally; Unsteady when standing up with PT/OT in room with pt General: Alert, Cooperative, No acute distress Heart: Regular rate, No murmurs Lungs: Clear, Other (no wheezes) Abdomen: Normal bowel sounds, Soft Extremities: No clubbing, No edema, Normal pulses Skin: No rashes Labs LABS Laboratory Tests Test 12/02/16 12:00 12/02/16 13:00 12/03/16 06:20 White Blood Count 3.3x10^3/uL (4.0-11.0) 2.6x10^3/uL (4.0-11.0) Red Blood Count 3.85x10^6/uL (4.30-5.70) 4.17x10^6/uL (4.30-5.70) Hemoglobin 12.0g/dL (13.0-17.5) 12.9g/dL (13.0-17.5) Hematocrit 35.6% (39.0-53.0) 38.6% (39.0-53.0) Mean Corpuscular Volume 92fL (79-100) 93fL (79-100) Mean Corpuscular Hemoglobin 31pg (25-35) 31pg (25-35) Mean Corpuscular Hemoglobin Concent 34g/dL (31-37) 33g/dL (31-37) Red Cell Distribution Width 14.1% (11.5-14.5) 14.2% (11.5-14.5) Platelet Count 95x10^3/uL (140-400) 89x10^3/uL (140-400) Neutrophils (%) (Auto) 65% (31-73) 44% (31-73) Lymphocytes (%) (Auto) 16% (24-48) 36% (24-48) Monocytes (%) (Auto) 17% (0-9) 17% (0-9) Eosinophils (%) (Auto) 2% (0-3) 2% (0-3) Basophils (%) (Auto) 1% (0-3) 1% (0-3) Neutrophils # (Auto) 2.1x10^3uL (1.8-7.7) 1.1x10^3uL (1.8-7.7) Lymphocytes # (Auto) 0.5x10^3/uL (1.0-4.8) 0.9x10^3/uL (1.0-4.8) Monocytes # (Auto) 0.5x10^3/uL (0.0-1.1) 0.5x10^3/uL (0.0-1.1) Eosinophils # (Auto) 0.1x10^3/uL (0.0-0.7) 0.1x10^3/uL (0.0-0.7) Basophils # (Auto) 0.0x10^3/uL (0.0-0.2) 0.0x10^3/uL (0.0-0.2) Prothrombin Time 14.1SEC (11.7-14.0) Prothromb Time International Ratio 1.2 (0.8-1.1) Sodium Level 135mmol/L (136-145) 134mmol/L (136-145) Potassium Level 3.4mmol/L (3.5-5.1) 3.1mmol/L (3.5-5.1) Chloride Level 92mmol/L (98-107) 94mmol/L (98-107) Carbon Dioxide Level 40mmol/L (21-32) 35mmol/L (21-32) Anion Gap 3 (6-14) 5 (6-14) Blood Urea Nitrogen 11mg/dL (8-26) 9mg/dL (8-26) Creatinine 0.6mg/dL (0.7-1.3) 0.6mg/dL (0.7-1.3) Estimated GFR (Cockcroft-Gault) 132.4 132.4 BUN/Creatinine Ratio 18 (6-20) Glucose Level 89mg/dL (70-99) 86mg/dL (70-99) Calcium Level 8.7mg/dL (8.5-10.1) 8.7mg/dL (8.5-10.1) Total Bilirubin 0.9mg/dL (0.2-1.0) Aspartate Amino Transf (AST/SGOT) 18U/L (15-37) Alanine Aminotransferase (ALT/SGPT) 12U/L (16-63) Alkaline Phosphatase 52U/L (46-116) Creatine Kinase 107U/L (39-308) Troponin I Quantitative < 0.017ng/mL (0.000-0.055) Total Protein 6.4g/dL (6.4-8.2) Albumin 2.9g/dL (3.4-5.0) Albumin/Globulin Ratio 0.8 (1.0-1.7) Vitamin B12 Level 452pg/mL (211-946) 25-Hydroxy Vitamin D Total 41.4ng/mL (30.0-100.0) Thyroid Stimulating Hormone (TSH) 0.744uIU/mL (0.358-3.74) Urine Collection Type Unknown Urine Color [place] Urine Clarity Clear Urine pH 7.0 Urine Specific [place] 1.025 Urine Protein Negativemg/dL (NEG-TRACE) Urine Glucose (UA) Negativemg/dL (NEG) Urine Ketones (Stick) 15mg/dL (NEG) Urine Blood Negative (NEG) Urine Nitrite Negative (NEG) Urine Bilirubin Small (NEG) Urine Urobilinogen Dipstick 4.0mg/dL (0.2 mg/dL) Urine Leukocyte Esterase Small (NEG) Urine RBC 0/HPF (0-2) Urine WBC 0/HPF (0-4) Urine Squamous Epithelial Cells Few/LPF Urine Bacteria 0/HPF (0-FEW) Triglycerides Level 53mg/dL (0-150) Cholesterol Level 186mg/dL (0-200) LDL Cholesterol, Calculated 121mg/dL (0-100) VLDL Cholesterol, Calculated 11mg/dL (0-40) HDL Cholesterol 54mg/dL (40-60) Cholesterol/HDL Ratio 3.4 Review of Systems Review of Systems Complaining of Weakness on Right side Complaining of Fatigue Complaining of Feeling Unsteady with standing Assessment and Plan Assessmemt and Plan Problems Medical Problems: (1) Altered mental status Status: Acute 1. CVA Syndrome 2. Metabolic Encephalopathy 3. HTN 4. 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 BPH 6. Glaucoma 7. Hyperlipidemia 8. Hx of Seizure 9. Depression Plan: - Appreciate Neuro Recommendations and Work-up for CVA Syndrome - Work-up in progress for CVA syndrome - CT Head: No intracranial abnormalities noted - EEG later today - Echo + Bubble Study: Pending Results - Carotid Artery Study+ Doppler: Pending Results - Will continue on ASA 325 mg as recommended by Neuro - Continue Regular home medications for BPH, Seizure, HLD, HTN, Glaucoma, and COPD - PT/OT on Case to continue to evaluate and treat as needed Problems: Comment Review of Relevant I have reviewed the following items shahida (where applicable) has been applied. Labs Laboratory Tests Test 12/02/16 12:00 12/02/16 13:00 12/03/16 06:20 White Blood Count 3.3x10^3/uL (4.0-11.0) 2.6x10^3/uL (4.0-11.0) Red Blood Count 3.85x10^6/uL (4.30-5.70) 4.17x10^6/uL (4.30-5.70) Hemoglobin 12.0g/dL (13.0-17.5) 12.9g/dL (13.0-17.5) Hematocrit 35.6% (39.0-53.0) 38.6% (39.0-53.0) Mean Corpuscular Volume 92fL (79-100) 93fL (79-100) Mean Corpuscular Hemoglobin 31pg (25-35) 31pg (25-35) Mean Corpuscular Hemoglobin Concent 34g/dL (31-37) 33g/dL (31-37) Red Cell Distribution Width 14.1% (11.5-14.5) 14.2% (11.5-14.5) Platelet Count 95x10^3/uL (140-400) 89x10^3/uL (140-400) Neutrophils (%) (Auto) 65% (31-73) 44% (31-73) Lymphocytes (%) (Auto) 16% (24-48) 36% (24-48) Monocytes (%) (Auto) 17% (0-9) 17% (0-9) Eosinophils (%) (Auto) 2% (0-3) 2% (0-3) Basophils (%) (Auto) 1% (0-3) 1% (0-3) Neutrophils # (Auto) 2.1x10^3uL (1.8-7.7) 1.1x10^3uL (1.8-7.7) Lymphocytes # (Auto) 0.5x10^3/uL (1.0-4.8) 0.9x10^3/uL (1.0-4.8) Monocytes # (Auto) 0.5x10^3/uL (0.0-1.1) 0.5x10^3/uL (0.0-1.1) Eosinophils # (Auto) 0.1x10^3/uL (0.0-0.7) 0.1x10^3/uL (0.0-0.7) Basophils # (Auto) 0.0x10^3/uL (0.0-0.2) 0.0x10^3/uL (0.0-0.2) Prothrombin Time 14.1SEC (11.7-14.0) Prothromb Time International Ratio 1.2 (0.8-1.1) Sodium Level 135mmol/L (136-145) 134mmol/L (136-145) Potassium Level 3.4mmol/L (3.5-5.1) 3.1mmol/L (3.5-5.1) Chloride Level 92mmol/L (98-107) 94mmol/L (98-107) Carbon Dioxide Level 40mmol/L (21-32) 35mmol/L (21-32) Anion Gap 3 (6-14) 5 (6-14) Blood Urea Nitrogen 11mg/dL (8-26) 9mg/dL (8-26) Creatinine 0.6mg/dL (0.7-1.3) 0.6mg/dL (0.7-1.3) Estimated GFR (Cockcroft-Gault) 132.4 132.4 BUN/Creatinine Ratio 18 (6-20) Glucose Level 89mg/dL (70-99) 86mg/dL (70-99) Calcium Level 8.7mg/dL (8.5-10.1) 8.7mg/dL (8.5-10.1) Total Bilirubin 0.9mg/dL (0.2-1.0) Aspartate Amino Transf (AST/SGOT) 18U/L (15-37) Alanine Aminotransferase (ALT/SGPT) 12U/L (16-63) Alkaline Phosphatase 52U/L (46-116) Creatine Kinase 107U/L (39-308) Troponin I Quantitative < 0.017ng/mL (0.000-0.055) Total Protein 6.4g/dL (6.4-8.2) Albumin 2.9g/dL (3.4-5.0) Albumin/Globulin Ratio 0.8 (1.0-1.7) Vitamin B12 Level 452pg/mL (211-946) 25-Hydroxy Vitamin D Total 41.4ng/mL (30.0-100.0) Thyroid Stimulating Hormone (TSH) 0.744uIU/mL (0.358-3.74) Urine Collection Type Unknown Urine Color [place] Urine Clarity Clear Urine pH 7.0 Urine Specific [place] 1.025 Urine Protein Negativemg/dL (NEG-TRACE) Urine Glucose (UA) Negativemg/dL (NEG) Urine Ketones (Stick) 15mg/dL (NEG) Urine Blood Negative (NEG) Urine Nitrite Negative (NEG) Urine Bilirubin Small (NEG) Urine Urobilinogen Dipstick 4.0mg/dL (0.2 mg/dL) Urine Leukocyte Esterase Small (NEG) Urine RBC 0/HPF (0-2) Urine WBC 0/HPF (0-4) Urine Squamous Epithelial Cells Few/LPF Urine Bacteria 0/HPF (0-FEW) Triglycerides Level 53mg/dL (0-150) Cholesterol Level 186mg/dL (0-200) LDL Cholesterol, Calculated 121mg/dL (0-100) VLDL Cholesterol, Calculated 11mg/dL (0-40) HDL Cholesterol 54mg/dL (40-60) Cholesterol/HDL Ratio 3.4 Laboratory Tests Test 12/02/16 12:00 12/02/16 13:00 12/03/16 06:20 White Blood Count 3.3x10^3/uL (4.0-11.0) 2.6x10^3/uL (4.0-11.0) Red Blood Count 3.85x10^6/uL (4.30-5.70) 4.17x10^6/uL (4.30-5.70) Hemoglobin 12.0g/dL (13.0-17.5) 12.9g/dL (13.0-17.5) Hematocrit 35.6% (39.0-53.0) 38.6% (39.0-53.0) Mean Corpuscular Volume 92fL (79-100) 93fL (79-100) Mean Corpuscular Hemoglobin 31pg (25-35) 31pg (25-35) Mean Corpuscular Hemoglobin Concent 34g/dL (31-37) 33g/dL (31-37) Red Cell Distribution Width 14.1% (11.5-14.5) 14.2% (11.5-14.5) Platelet Count 95x10^3/uL (140-400) 89x10^3/uL (140-400) Neutrophils (%) (Auto) 65% (31-73) 44% (31-73) Lymphocytes (%) (Auto) 16% (24-48) 36% (24-48) Monocytes (%) (Auto) 17% (0-9) 17% (0-9) Eosinophils (%) (Auto) 2% (0-3) 2% (0-3) Basophils (%) (Auto) 1% (0-3) 1% (0-3) Neutrophils # (Auto) 2.1x10^3uL (1.8-7.7) 1.1x10^3uL (1.8-7.7) Lymphocytes # (Auto) 0.5x10^3/uL (1.0-4.8) 0.9x10^3/uL (1.0-4.8) Monocytes # (Auto) 0.5x10^3/uL (0.0-1.1) 0.5x10^3/uL (0.0-1.1) Eosinophils # (Auto) 0.1x10^3/uL (0.0-0.7) 0.1x10^3/uL (0.0-0.7) Basophils # (Auto) 0.0x10^3/uL (0.0-0.2) 0.0x10^3/uL (0.0-0.2) Prothrombin Time 14.1SEC (11.7-14.0) Prothromb Time International Ratio 1.2 (0.8-1.1) Sodium Level 135mmol/L (136-145) 134mmol/L (136-145) Potassium Level 3.4mmol/L (3.5-5.1) 3.1mmol/L (3.5-5.1) Chloride Level 92mmol/L (98-107) 94mmol/L (98-107) Carbon Dioxide Level 40mmol/L (21-32) 35mmol/L (21-32) Anion Gap 3 (6-14) 5 (6-14) Blood Urea Nitrogen 11mg/dL (8-26) 9mg/dL (8-26) Creatinine 0.6mg/dL (0.7-1.3) 0.6mg/dL (0.7-1.3) Estimated GFR (Cockcroft-Gault) 132.4 132.4 BUN/Creatinine Ratio 18 (6-20) Glucose Level 89mg/dL (70-99) 86mg/dL (70-99) Calcium Level 8.7mg/dL (8.5-10.1) 8.7mg/dL (8.5-10.1) Total Bilirubin 0.9mg/dL (0.2-1.0) Aspartate Amino Transf (AST/SGOT) 18U/L (15-37) Alanine Aminotransferase (ALT/SGPT) 12U/L (16-63) Alkaline Phosphatase 52U/L (46-116) Creatine Kinase 107U/L (39-308) Troponin I Quantitative < 0.017ng/mL (0.000-0.055) Total Protein 6.4g/dL (6.4-8.2) Albumin 2.9g/dL (3.4-5.0) Albumin/Globulin Ratio 0.8 (1.0-1.7) Vitamin B12 Level 452pg/mL (211-946) 25-Hydroxy Vitamin D Total 41.4ng/mL (30.0-100.0) Thyroid Stimulating Hormone (TSH) 0.744uIU/mL (0.358-3.74) Urine Collection Type Unknown Urine Color [place] Urine Clarity Clear Urine pH 7.0 Urine Specific [place] 1.025 Urine Protein Negativemg/dL (NEG-TRACE) Urine Glucose (UA) Negativemg/dL (NEG) Urine Ketones (Stick) 15mg/dL (NEG) Urine Blood Negative (NEG) Urine Nitrite Negative (NEG) Urine Bilirubin Small (NEG) Urine Urobilinogen Dipstick 4.0mg/dL (0.2 mg/dL) Urine Leukocyte Esterase Small (NEG) Urine RBC 0/HPF (0-2) Urine WBC 0/HPF (0-4) Urine Squamous Epithelial Cells Few/LPF Urine Bacteria 0/HPF (0-FEW) Triglycerides Level 53mg/dL (0-150) Cholesterol Level 186mg/dL (0-200) LDL Cholesterol, Calculated 121mg/dL (0-100) VLDL Cholesterol, Calculated 11mg/dL (0-40) HDL Cholesterol 54mg/dL (40-60) Cholesterol/HDL Ratio 3.4 Medications Current Medications Ondansetron HCl (Zofran) 4 mg PRN Q8HRS PRN IV NAUSEA/VOMITING; Start 12/02/16 at 12:30; Stop 12/03/16 at 12:29 Acetaminophen (Tylenol) 650 mg PRN Q4HRS PRN PO FEVER; Start 12/02/16 at 12:30; Stop 12/03/16 at 12:29 Potassium Chloride (Klor-Con) 40 meq 1X ONCE PO Last administered on 12/02/16 17:53; Start 12/02/16 at 16:30; Stop 12/02/16 at 16:31; Status DC Albuterol/ Ipratropium (Duoneb) 3 ml RTQID NEB Last administered on 12/03/16 07 :21; Start 12/02/16 at 20:00 Brimonidine Tartrate (Alphagan) 1 drop BID OU Last administered on 12/03/16 10: 44; Start 12/02/16 at 21:00 Bupropion HCl (Wellbutrin) 75 mg DAILY PO Last administered on 12/03/16 10:44; Start 12/03/16 at 09:00 Dorzolamide HCl (Trusopt) 1 drop BID OU Last administered on 12/03/16 10:44; Start 12/02/16 at 21:00 Finasteride (Proscar) 5 mg DAILY PO Last administered on 12/03/16 10:43; Start 12/03/16 at 09:00 Gabapentin (Neurontin) 100 mg QID PO Last administered on 12/03/16 10:43; Start 12/02/16 at 21:00 Hydrochlorothiazide (Microzide) 12.5 mg DAILY PO Last administered on 12/03/16 10:43; Start 12/02/16 at 20:00 Latanoprost (Xalatan) 1 drop QHS OU Last administered on 12/02/16 21:43; Start 12/02/16 at 21:00 Lidocaine (Lidoderm) 1 patch DAILY TP Last administered on 12/03/16 10:45; Start 12/03/16 at 09:00 Senna/Docusate Sodium (Senna Plus) 1 tab DAILY PO Last administered on 10:43; Start 12/03/16 at 09:00 Non-Formulary Medication 1 puff PRN Q6HRS PRN INH SHORTNESS OF BREATH; Start at 19:00; Stop 12/02/16 at 19:13; Status DC Non-Formulary Medication 2 puff BID IH ; Start 12/02/16 at 21:00; Stop 12/02/16 at 21:00; Status DC Carvedilol (Coreg) 25 mg BIDWMEALS PO Last administered on 12/03/16 10:43; Start 12/02/16 at 20:00 Duloxetine HCl (Cymbalta) 60 mg DAILY PO Last administered on 12/03/16 10:42; Start 12/03/16 at 09:00 Losartan Potassium (Cozaar) 100 mg DAILY PO Last administered on 12/03/16 10:43 ; Start 12/02/16 at 20:00 Nicotine Polacrilex (Nicorette Gum) 1 each PRN Q1HR PRN BC SMOKING CESSATION; Start 12/02/16 at 19:15 Nifedipine (Procardia Xl) 30 mg BID PO Last administered on 12/03/16 10:43; Start 12/02/16 at 21:00 Valproic Acid (Depakene) 500 mg DAILY PO Last administered on 12/03/16 10:42; Start 12/03/16 at 09:00 Valproic Acid (Depakene) 750 mg QHS PO Last administered on 12/02/16 21:43; Start 12/02/16 at 21:00 Albuterol Sulfate (Ventolin Neb Soln) 2.5 mg RTQID NEB ; Start 12/02/16 at 20:00 ; Status UNV Albuterol Sulfate (Ventolin Neb Soln) 2.5 mg PRN Q6HRS PRN NEB SHORTNESS OF BREATH; Start 12/02/16 at 19:15 Budesonide (Pulmicort) 0.5 mg RTBID NEB Last administered on 12/03/16 07:22; Start 12/02/16 at 20:00 Simvastatin (Zocor) 20 mg HS PO ; Start 12/03/16 at 21:00 Active Scripts Active Reported Aspirin Buffered 325 Mg Tab (Aspirin/Calcium Carbonate/Mag) 325 Mg Tablet 325 Mg PO DAILY Bupropion Hcl 75 Mg Tablet 0.5 Tab PO DAILY Dorzolamide Hcl 10 Ml Drops 1 Drop EACHEYE BID Symbicort 160-4.5 Mcg Inhaler (Budesonide/Formoterol Fumarate) 10.2 Gm Hfa.aer.ad 2 Puff IH BID Brimonidine Tartrate 5 Ml Drops 5 Ml OP Proair Hfa Inhaler (Albuterol Sulfate) 8.5 Gm Hfa.aer.ad 1 Puff INH PRN Q6HRS PRN Latanoprost 2.5 Ml Drops 1 Drop EACHEYE QHS Valproic Acid (Valproate Sodium) 250 Mg/5 Ml Disp.syrin 500 Mg PO DAILY Valproic Acid (Valproate Sodium) 250 Mg/5 Ml Disp.syrin 750 Mg PO QHS Nitrostat (Nitroglycerin) 0.4 Mg Tab.subl 1 Tab SL UD Nifedipine Er (Nifedipine) 30 Mg Tablet.er 1 Tab PO BID Nicotine Gum (Nicotine Polacrilex) 4 Mg Gum 4 Mg BC Q1HR PRN Losartan Potassium 100 Mg Tablet 100 Mg PO DAILY Lidocaine 700 Mg Adh..patch 700 Mg TP Hydrochlorothiazide Capsule (Hydrochlorothiazide) 12.5 Mg Capsule 2 Cap PO DAILY Gabapentin 100 Mg Capsule 100 Mg PO QID Finasteride 5 Mg Tablet 1 Tab PO DAILY Duloxetine Hcl 60 Mg Capsule.dr 60 Mg PO DAILY Sennosides-Docusate Sodium Tab (Sennosides/Docusate Sodium) 1 Each Tablet 1 Each PO Vitamin D3 (Cholecalciferol (Vitamin D3)) 1,000 Unit Tablet 1 Tab PO DAILY Carvedilol 25 Mg Tablet 1 Tab PO BID Vitals/I & O Vital Sign - Last 24 Hours 12/02/16 12/02/16 12/02/16 12/02/16 11:33 12:45 13:31 15:02 Temp 98.9 98.9 Pulse 78 76 73 64 Resp 21 20 20 18 B/P 162/108 153/79 163/86 163/89 Pulse Ox 97 97 95 99 O2 Delivery Nasal Cannula Nasal Cannula Nasal Cannula O2 Flow Rate 3 3 3 12/02/16 12/02/16 12/02/16 12/02/16 15:04 19:10 20:00 21:01 Temp 98.9 99.9 98.9 99.9 Pulse 68 76 Resp 18 16 B/P 163/89 160/92 Pulse Ox 99 98 97 O2 Delivery Nasal Cannula Room Air Nasal Cannula O2 Flow Rate 3.0 3.0 12/02/16 12/02/16 12/02/16 12/02/16 21:38 21:38 21:44 23:28 Temp 98.2 98.2 Pulse 76 76 76 69 Resp 16 B/P 160/92 160/92 160/92 115/80 Pulse Ox 97 O2 Delivery Room Air 12/03/16 12/03/16 12/03/16 12/03/16 03:10 07:00 07:23 08:00 Temp 98.1 96.8 98.1 96.8 Pulse 73 70 Resp 16 18 B/P 125/61 158/81 Pulse Ox 94 96 94 O2 Delivery Room Air Nasal Cannula Nasal Cannula O2 Flow Rate 2.0 3.0 3.0 12/03/16 12/03/16 12/03/16 10:43 10:43 10:43 Pulse 70 70 70 B/P 158/81 158/81 158/81 Intake and Output 12/02/16 12/02/16 12/03/16 15:00 23:00 07:00 Intake Total 180 ml 280 ml Balance 180 ml 280 ml SHERRON LEE III DO Dec 03, 2016 11:27
--- NOTE | 2016-12-03 14:52 | CARD ---
APPROVED REPORT EXAM: Two-dimensional and M-mode echocardiogram with Doppler and color Doppler. Other Information Quality : Good Rhythm : NSR INDICATION CVA/TIA 2D DIMENSIONS RVDd3.0 (2.9-3.5cm)Left Atrium(2D)3.6 (1.6-4.0cm) IVSd1.0 (0.7-1.1cm)Aortic Root(2D)2.7 (2.0-3.7cm) LVDd5.1 (3.9-5.9cm)LVOT Diameter2.2 (1.8-2.4cm) PWd1.0 (0.7-1.1cm)LVDs3.6 (2.5-4.0cm) FS (%) 29.9 %SV70.5 ml LVEF(%)56.7 (>50%) Aortic Valve AoV Peak Cristóbal.218.8cm/sAoV VTI44.8cm AO Peak GR.19.2mmHgLVOT VTI 16.31cm AO Mean GR.12mmHg Mitral Valve MV E Auxqecgu11.1cm/sMV E Peak Gr.4mmHg MV DECEL [id number] A Hbgswtax392.5cm/s MV E Mean Gr.2mmHgE/A Ratio0.5 MV A [id number] TDI Lateral E' P. V7.66cm/sMedial E' P. V5.86cm/s E/Lateral E'7.6E/Medial E'9.9 Tricuspid Valve TR P. [id number]/sRAP [id number] TR Peak Gr.25mmHg Pulmonary Vein S1 Wnbcrrsq37.3cm/sS2 Idfolbaw15.45cm/s D2 Mlcnxmqc73.5cm/sPVa [id number] LEFT VENTRICLE The left ventricle is normal size. There is normal left ventricular wall thickness. The left ventricu lar systolic function is normal. The Ejection Fraction is 55-60%. There is normal LV segmental wall m otion. Transmitral Doppler flow pattern is Grade I-abnormal relaxation pattern. No left ventricle thr ombus noted on this study. RIGHT VENTRICLE The right ventricle is normal size. There is normal right ventricular wall thickness. The right ventr icular systolic function is normal. ATRIA The left atrium size is normal. The right atrium size is normal. Injection of bubbles documented an i nteratrial shunt. AORTIC VALVE The aortic valve is moderately sclerotic. Doppler and Color Flow revealed mild aortic regurgitation. There is no significant aortic valvular stenosis. MITRAL VALVE Mitral annular calcification is mild. The mitral valve leaflets are thickened. There is no evidence o f mitral valve prolapse. There is no mitral valve stenosis. Doppler and Color Flow revealed trace eduardo ral regurgitation. TRICUSPID VALVE Doppler and Color Flow revealed trace tricuspid regurgitation. The pulmonary artery systolic pressure is estimated at 30 mmHg. There is mild pulmonary hypertension. PULMONIC VALVE Doppler and Color Flow revealed trace pulmonic valvular regurgitation. There is no pulmonic valvular stenosis. GREAT VESSELS The aortic root is normal in size. The ascending aorta is normal in size. The pulmonary artery is nor mal. The IVC is normal in size and collapses >50% with inspiration. PERICARDIAL EFFUSION There is no evidence of significant pericardial effusion. Critical Notification Critical Value: No <Conclusion> The left ventricular systolic function is normal. The Ejection Fraction is 55-60%. There is normal LV segmental wall motion. Transmitral Doppler flow pattern is Grade I-abnormal relaxation pattern. Mild aortic regurgitation. Trace mitral regurgitation. Trace tricuspid regurgitation. The pulmonary artery systolic pressure is estimated at 30 mmHg. There is mild pulmonary hypertension. There is no evidence of significant pericardial effusion.
[2016-12-03 15:00] VITALS: BP 104/60
--- NOTE | 2016-12-03 18:00 | PDOC ---
PROGRESS NOTES Assessment Assessment Worsening of right side weakness. Metabolic encephalopathy. Confusion. 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 Carotid A stenosis 40% or less. HTN HLD COPD O2 dependent. Chronic neck and back pain. Right maxillary and ethmoid sinusitis. RECOMMENDATIONS/PLAN: Repeat HCT in am, not done yet. reordered. MRI is contraindicated due to pacemaker. EEG Continue ASA 325 mg daily at the present time, will change to Plavix if has new stroke. Add Zocor 20 mg HS. Treat medical diseases. OT/PT. Discussed with his and son-in-law at bedside on 12/02. HISTORY OF THE PRESENT ILLNESS: 71-y-old male patient with above medical diseases and old stroke with right side hemiparesis per his . He can walk with walker usually, but he was unable to get up this morning due to increased weakness inhis right side UE and LE. He was also noted by his to have mental status changes, confusion, and difficulty speaking to be brought to the ER. No new cranial nerve deficits. He is not a candidate of TPA due to onset time of symptoms was unknown. PAST MEDICAL HISTORY: Please see above. PAST SURGERY HISTORY: Pacemaker Placement Hernia Repair, ALLERGY: Reviewed. MEDICATIONS: Refer to [facility] FAMILY HISTORY: Non contributory. SOCIAL HISTORY: Lives at home. Denies current smoking, drinking, and illicit drug use. REVIEW OF SYSTEMS: Constitutional: No malnutrition, weight loss, cachexia. Head: No traumatic brain or head injury. Skin: No edema, or rash. Ear: No infection, tinnitus. Eyes: No vision loss or color blindness. Nose: No bleeding or purulent discharges. Hearing: Hearing decrease. Neck: Neck pain. Cardiac: Pacemaker Placement Pulmonary: No COPD. GI: No GI ulcer, GI bleeding. Urinary/genital: UTI. Endocrinologic: No cousin face, craniofacial dysmorphism, polydactyly, goiter Skeletomuscular: Chronic right side weakness. Neurological: see HP. Psychiatric: Denies drug use/abuse. Otherwise, not [id number] review of systems. PHYSICAL EXAMINATION: General appearance is in subacute distress. HEENT: Normocephalic and nontraumatic. Eyes, nose, ears, and throat are unremarkable. Neck is supple. No lymphadenopathy. No bruits are heard over the carotid artery. No crepitus. Cardiovascular: S1, S2, regular rate and rhythm. Pulmonary: Clear to auscultation bilaterally. Abdomen: Bowel sounds are positive. Extremities: No rash, lesions, or edema. No restriction of range of motion NEUROLOGICAL EXAMINATION: Awake. Confused. Not oriented to time, but knows place and person. PERRL. EOMI. CN: no focal findings. Muscle tone: Mildly increased. Muscle strength: 4+ right side, 5 left side. DTR: 2- Plantar reflex: Neutral response bilaterally Gait: not examined in bed. Sensory exam: no acute abnormal findings. No obvious cerebellar signs elicited. Not able to perform F-T-N test. Objective Objective Vital Signs Date Time Temp Pulse Resp B/P Pulse Ox O2 Delivery O2 Flow Rate FiO2 12/03/16 17:49 73 104/60 12/03/16 15:52 94 Nasal Cannula 3.0 12/03/16 15:00 97.9 18 97.9 Intake and Output 12/03/16 07:00 Intake Total 460 ml Balance 460 ml Intake Oral 460 ml # Voids 4 Vitals Signs Vitals VS - Last 72 Hours, by Label Date Time Temp Pulse Resp B/P Pulse Ox O2 Delivery O2 Flow Rate FiO2 12/03/16 17:49 73 104/60 12/03/16 15:52 94 Nasal Cannula 3.0 12/03/16 15:00 97.9 73 18 104/60 96 97.9 12/03/16 11:57 94 Nasal Cannula 3.0 12/03/16 11:00 97.5 70 18 179/89 96 Nasal Cannula 2.0 97.5 12/03/16 10:43 70 158/81 12/03/16 10:43 70 158/81 12/03/16 10:43 70 158/81 12/03/16 08:00 3.0 12/03/16 07:23 94 Nasal Cannula 3.0 12/03/16 07:00 96.8 70 18 158/81 96 Nasal Cannula 2.0 96.8 12/03/16 03:10 98.1 73 16 125/61 94 Room Air 98.1 12/02/16 23:28 98.2 69 16 115/80 97 Room Air 98.2 12/02/16 21:44 76 160/92 12/02/16 21:38 76 160/92 12/02/16 21:38 76 160/92 12/02/16 21:01 97 Nasal Cannula 3.0 12/02/16 20:00 3.0 12/02/16 19:10 99.9 76 16 160/92 98 Room Air 99.9 12/02/16 15:04 98.9 68 18 163/89 99 Nasal Cannula 98.9 12/02/16 15:02 98.9 64 18 163/89 99 98.9 12/02/16 13:31 73 20 163/86 95 Nasal Cannula 3 12/02/16 12:45 76 20 153/79 97 Nasal Cannula 3 12/02/16 11:33 78 21 162/108 97 Nasal Cannula 3 12/02/16 11:03 76 25 171/89 97 Nasal Cannula 3 12/02/16 10:31 98.7 74 23 154/87 88 Room Air 98.7 Laboratory Laboratory Laboratory Tests Test 12/03/16 06:20 White Blood Count 2.6x10^3/uL (4.0-11.0) Red Blood Count 4.17x10^6/uL (4.30-5.70) Hemoglobin 12.9g/dL (13.0-17.5) Hematocrit 38.6% (39.0-53.0) Mean Corpuscular Volume 93fL (79-100) Mean Corpuscular Hemoglobin 31pg (25-35) Mean Corpuscular Hemoglobin Concent 33g/dL (31-37) Red Cell Distribution Width 14.2% (11.5-14.5) Platelet Count 89x10^3/uL (140-400) Neutrophils (%) (Auto) 44% (31-73) Lymphocytes (%) (Auto) 36% (24-48) Monocytes (%) (Auto) 17% (0-9) Eosinophils (%) (Auto) 2% (0-3) Basophils (%) (Auto) 1% (0-3) Neutrophils # (Auto) 1.1x10^3uL (1.8-7.7) Lymphocytes # (Auto) 0.9x10^3/uL (1.0-4.8) Monocytes # (Auto) 0.5x10^3/uL (0.0-1.1) Eosinophils # (Auto) 0.1x10^3/uL (0.0-0.7) Basophils # (Auto) 0.0x10^3/uL (0.0-0.2) Sodium Level 134mmol/L (136-145) Potassium Level 3.1mmol/L (3.5-5.1) Chloride Level 94mmol/L (98-107) Carbon Dioxide Level 35mmol/L (21-32) Anion Gap 5 (6-14) Blood Urea Nitrogen 9mg/dL (8-26) Creatinine 0.6mg/dL (0.7-1.3) Estimated GFR (Cockcroft-Gault) 132.4 Glucose Level 86mg/dL (70-99) Calcium Level 8.7mg/dL (8.5-10.1) Triglycerides Level 53mg/dL (0-150) Cholesterol Level 186mg/dL (0-200) LDL Cholesterol, Calculated 121mg/dL (0-100) VLDL Cholesterol, Calculated 11mg/dL (0-40) HDL Cholesterol 54mg/dL (40-60) Cholesterol/HDL Ratio 3.4 Microbiology 12/02/16 Urine Culture - Preliminary, Resulted 12/02/16 Urine Culture Result 1 (MICHAEL) - Preliminary, Resulted Medication Medications Current Medications Albuterol Sulfate (Ventolin Neb Soln) 2.5 mg PRN Q6HRS PRN NEB SHORTNESS OF BREATH; Start 12/02/16 at 19:15 Albuterol Sulfate (Ventolin Neb Soln) 2.5 mg RTQID NEB ; Start 12/02/16 at 20:00 ; Status UNV Albuterol/ Ipratropium (Duoneb) 3 ml RTQID NEB Last administered on 12/03/16 15 :51; Start 12/02/16 at 20:00 Brimonidine Tartrate (Alphagan) 1 drop BID OU Last administered on 12/03/16 10: 44; Start 12/02/16 at 21:00 Budesonide (Pulmicort) 0.5 mg RTBID NEB Last administered on 12/03/16 07:22; Start 12/02/16 at 20:00 Bupropion HCl (Wellbutrin) 75 mg DAILY PO Last administered on 12/03/16 10:44; Start 12/03/16 at 09:00 Carvedilol (Coreg) 25 mg BIDWMEALS PO Last administered on 12/03/16 17:49; Start 12/02/16 at 20:00 Dorzolamide HCl (Trusopt) 1 drop BID OU Last administered on 12/03/16 10:44; Start 12/02/16 at 21:00 Duloxetine HCl (Cymbalta) 60 mg DAILY PO Last administered on 12/03/16 10:42; Start 12/03/16 at 09:00 Finasteride (Proscar) 5 mg DAILY PO Last administered on 12/03/16 10:43; Start 12/03/16 at 09:00 Gabapentin (Neurontin) 100 mg QID PO Last administered on 12/03/16 17:49; Start 12/02/16 at 21:00 Hydrochlorothiazide (Microzide) 12.5 mg DAILY PO Last administered on 12/03/16 10:43; Start 12/02/16 at 20:00 Latanoprost (Xalatan) 1 drop QHS OU Last administered on 12/02/16 21:43; Start 12/02/16 at 21:00 Lidocaine (Lidoderm) 1 patch DAILY TP ; Start 12/03/16 at 09:00 Losartan Potassium (Cozaar) 100 mg DAILY PO Last administered on 12/03/16 10:43 ; Start 12/02/16 at 20:00 Nicotine Polacrilex (Nicorette Gum) 1 each PRN Q1HR PRN BC SMOKING CESSATION; Start 12/02/16 at 19:15 Nifedipine (Procardia Xl) 30 mg BID PO Last administered on 12/03/16 10:43; Start 12/02/16 at 21:00 Non-Formulary Medication 1 puff PRN Q6HRS PRN INH SHORTNESS OF BREATH; Start at 19:00; Stop 12/02/16 at 19:13; Status DC Non-Formulary Medication 2 puff BID IH ; Start 12/02/16 at 21:00; Stop 12/02/16 at 21:00; Status DC Senna/Docusate Sodium (Senna Plus) 1 tab DAILY PO Last administered on 10:43; Start 12/03/16 at 09:00 Simvastatin (Zocor) 20 mg HS PO ; Start 12/03/16 at 21:00 Valproic Acid (Depakene) 500 mg DAILY PO Last administered on 12/03/16 10:42; Start 12/03/16 at 09:00 Valproic Acid (Depakene) 750 mg QHS PO Last administered on 12/02/16 21:43; Start 12/02/16 at 21:00 Comment Review of Relevant I have reviewed the following items shahida (where applicable) has been applied. AMRITA CANSECO MD Dec 03, 2016 18:00
[2016-12-03 19:22] VITALS: BP 127/61
[2016-12-03] MEDS: LATANOPROST 0.005% OPHTH SOLUTION 2.5ML BOTTLE. OU SCH (20:53)
[2016-12-03] MEDS ORDERED: SIMVASTATIN 20 MG TABLET PO SCH (21:00)
[2016-12-03 23:28] VITALS: BP 131/76
[2016-12-04 02:41] VITALS: BP 127/71
[2016-12-04 04:28] LABS: BASO % 1 % (0-3); EOS % 1 % (0-3); HEMATOCRIT 39.7 % (39.0-53.0); HEMOGLOBIN 13.3 g/dL (13.0-17.5); LYMPH # 0.8 x10^3/uL (1.0-4.8); LYMPH % 22 % (24-48); MEAN CORPUSCULAR HEMOGLOBIN 31 pg (25-35); MEAN CORPUSCULAR HGB CONC 33 g/dL (31-37); MEAN CORPUSCULAR VOLUME 92 fL (79-100); MONO % 15 % (0-9); NEUT % 62 % (31-73); PLATELET COUNT 97 x10^3/uL (140-400); RED BLOOD COUNT 4.31 x10^6/uL (4.30-5.70); RED CELL DISTRIBUTION WIDTH 14.3 % (11.5-14.5); WHITE BLOOD COUNT 3.6 x10^3/uL (4.0-11.0)
[2016-12-04 04:46] LABS: CALCIUM 8.8 mg/dL (8.5-10.1); CREATININE 0.7 mg/dL (0.7-1.3); GFR 110.9; POTASSIUM 3.4 mmol/L (3.5-5.1)
[2016-12-04 07:00] VITALS: BP 132/76
[2016-12-04] MEDS: IPRATRPIUM/ALBUTEROL 0.5/2.5MG 3 ML NEBU. NEB SCH ×3 (08:30→16:11)
[2016-12-04] MEDS: BUDESONIDE 0.5 MG/2 ML NEBU NEB SCH (08:31)
[2016-12-04] MEDS: BRIMONIDINE 0.2% OPHTH SOLUTION 5ML BOTTLE. OU SCH (09:40)
[2016-12-04] MEDS: DORZOLAMIDE 2% OPHTH SOLUTION 10ML BOTTLE. OU SCH (09:40)
[2016-12-04] MEDS: LIDOCAINE (700MG/PATCH) PATCH. TP SCH (09:41)
[2016-12-04] MEDS: LOSARTAN POTASSIUM 50 MG TABLET. PO SCH (09:46)
[2016-12-04] MEDS: CARVEDILOL 12.5 MG TABLET PO SCH ×2 (09:47→17:37)
[2016-12-04] MEDS: SENNOSIDES/DOCUSATE 8.6/50MG TABLET. PO SCH (09:47)
[2016-12-04] MEDS: DULOXETINE HCL 30 MG CAPSULE.DR. PO SCH (09:47)
[2016-12-04] MEDS: HYDROCHLOROTHIAZIDE 12.5 MG CAPSULE. PO SCH (09:47)
[2016-12-04] MEDS: NIFEDIPINE ER 30 MG TAB.ER.24H PO SCH (09:48)
[2016-12-04] MEDS: FINASTERIDE 5 MG TABLET PO SCH (09:49)
[2016-12-04] MEDS: GABAPENTIN 100 MG CAPSULE. PO SCH ×3 (09:49→17:37)
[2016-12-04] MEDS: buPROPion 75 MG TABLET PO SCH (09:49)
[2016-12-04] MEDS: VALPROIC ACID (AS SODIUM SALT) 250 MG/5 ML SOLUTION. PO SCH (09:51)
[2016-12-04 11:00] VITALS: BP 108/69
--- NOTE | 2016-12-04 11:09 | RAD ---
Clinical indications: Right-sided weakness. CVA symptoms. Follow-up study. Comparison: December 02, 2016. Technique: Noncontrast axial cross sectional scanning of the head was performed. PQRS Compliance Statement: One or more of the following individualized dose reduction techniques were utilized for this examination: 1. Automated exposure control 2. Adjustment of the mA and/or kV according to patient size 3. Use of iterative reconstruction technique Findings: No acute intracranial hemorrhage or midline shift or mass-effect or hydrocephalus or extra-axial fluid collection is seen. Again seen is bilateral periventricular white matter hypodensity consistent with chronic small vessel ischemic disease in this age group. This has not changed. No new focal hypodense area or sulci effacement is seen. No skull fracture or pneumocephalus is seen. Again seen is right maxillary and ethmoid sinusitis. Impression: No new intracranial abnormality is seen.
--- NOTE | 2016-12-04 11:24 | PDOC ---
PROGRESS NOTES Chief Complaint Chief Complaint 1. CVA Syndrome 2. Metabolic Encephalopathy 3. HTN 4. 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 BPH 6. Glaucoma 7. Hyperlipidemia 8. Hx of Seizure 9. Depression History of Present Illness History of Present Illness The pt was sitting up in chair upon arrival to his room this AM. The pt is still pleasantly confused. Pt has hx of baseline confusion due to prior medical hx. But no new complaints at this time. Asking about possible discharge home. Healthcare team- Further Work-up was negative, Repeat HCT this AM negative. 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; Unsteady when standing up with PT/OT in room with pt General: Alert, Cooperative, No acute distress Heart: Regular rate, No murmurs Lungs: Clear, Other (no wheezes, crackles, rales) Abdomen: Normal bowel sounds, Soft Extremities: No clubbing, No edema, Normal pulses Skin: No rashes Labs LABS Laboratory Tests Test 12/04/16 04:10 White Blood Count 3.6x10^3/uL (4.0-11.0) Red Blood Count 4.31x10^6/uL (4.30-5.70) Hemoglobin 13.3g/dL (13.0-17.5) Hematocrit 39.7% (39.0-53.0) Mean Corpuscular Volume 92fL (79-100) Mean Corpuscular Hemoglobin 31pg (25-35) Mean Corpuscular Hemoglobin Concent 33g/dL (31-37) Red Cell Distribution Width 14.3% (11.5-14.5) Platelet Count 97x10^3/uL (140-400) Neutrophils (%) (Auto) 62% (31-73) Lymphocytes (%) (Auto) 22% (24-48) Monocytes (%) (Auto) 15% (0-9) Eosinophils (%) (Auto) 1% (0-3) Basophils (%) (Auto) 1% (0-3) Neutrophils # (Auto) 2.2x10^3uL (1.8-7.7) Lymphocytes # (Auto) 0.8x10^3/uL (1.0-4.8) Monocytes # (Auto) 0.5x10^3/uL (0.0-1.1) Eosinophils # (Auto) 0.1x10^3/uL (0.0-0.7) Basophils # (Auto) 0.0x10^3/uL (0.0-0.2) Sodium Level 133mmol/L (136-145) Potassium Level 3.4mmol/L (3.5-5.1) Chloride Level 95mmol/L (98-107) Carbon Dioxide Level 36mmol/L (21-32) Anion Gap 2 (6-14) Blood Urea Nitrogen 14mg/dL (8-26) Creatinine 0.7mg/dL (0.7-1.3) Estimated GFR (Cockcroft-Gault) 110.9 Glucose Level 89mg/dL (70-99) Calcium Level 8.8mg/dL (8.5-10.1) Review of Systems Review of Systems Complaining of Weakness Complaining of Hunger All other ROS negative Assessment and Plan Assessmemt and Plan Problems Medical Problems: (1) Altered mental status Status: Acute 1. CVA Syndrome 2. Metabolic Encephalopathy 3. HTN 4. COPD / dependance 5. BPH 6. Glaucoma 7. Hyperlipidemia 8. Hx of Seizure 9. Depression Plan - Neuro Consulted- appreciate recommendations - Work-up in progress for CVA syndrome - Repeat HCT this AM (12/04/16): Again No acute intracranial abnormalities - Echo + Bubble Study Completed - Carotid Artery Study+ Doppler Completed - Vital Signs Stable - Labs WNL - Plan for possible discharge and will continue on ASA 325 mg as recommended by Neuro - PT/OT on Case to continue to evaluate and treat as needed Disposition: Discharge today if ok with Neuro; Continue ASA and Zocor 20 mg HS as recommended by Neuro on Discharge Problems: Comment Review of Relevant I have reviewed the following items shahida (where applicable) has been applied. Labs Laboratory Tests Test 12/02/16 12:00 12/02/16 13:00 12/03/16 06:20 12/04/16 04:10 White Blood Count 3.3x10^3/uL (4.0-11.0) 2.6x10^3/uL (4.0-11.0) 3.6x10^3/uL (4.0-11.0) Red Blood Count 3.85x10^6/uL (4.30-5.70) 4.17x10^6/uL (4.30-5.70) 4.31x10^6/uL (4.30-5.70) Hemoglobin 12.0g/dL (13.0-17.5) 12.9g/dL (13.0-17.5) 13.3g/dL (13.0-17.5) Hematocrit 35.6% (39.0-53.0) 38.6% (39.0-53.0) 39.7% (39.0-53.0) Mean Corpuscular Volume 92fL (79-100) 93fL (79-100) 92fL (79-100) Mean Corpuscular Hemoglobin 31pg (25-35) 31pg (25-35) 31pg (25-35) Mean Corpuscular Hemoglobin Concent 34g/dL (31-37) 33g/dL (31-37) 33g/dL (31-37) Red Cell Distribution Width 14.1% (11.5-14.5) 14.2% (11.5-14.5) 14.3% (11.5-14.5) Platelet Count 95x10^3/uL (140-400) 89x10^3/uL (140-400) 97x10^3/uL (140-400) Neutrophils (%) (Auto) 65% (31-73) 44% (31-73) 62% (31-73) Lymphocytes (%) (Auto) 16% (24-48) 36% (24-48) 22% (24-48) Monocytes (%) (Auto) 17% (0-9) 17% (0-9) 15% (0-9) Eosinophils (%) (Auto) 2% (0-3) 2% (0-3) 1% (0-3) Basophils (%) (Auto) 1% (0-3) 1% (0-3) 1% (0-3) Neutrophils # (Auto) 2.1x10^3uL (1.8-7.7) 1.1x10^3uL (1.8-7.7) 2.2x10^3uL (1.8-7.7) Lymphocytes # (Auto) 0.5x10^3/uL (1.0-4.8) 0.9x10^3/uL (1.0-4.8) 0.8x10^3/uL (1.0-4.8) Monocytes # (Auto) 0.5x10^3/uL (0.0-1.1) 0.5x10^3/uL (0.0-1.1) 0.5x10^3/uL (0.0-1.1) Eosinophils # (Auto) 0.1x10^3/uL (0.0-0.7) 0.1x10^3/uL (0.0-0.7) 0.1x10^3/uL (0.0-0.7) Basophils # (Auto) 0.0x10^3/uL (0.0-0.2) 0.0x10^3/uL (0.0-0.2) 0.0x10^3/uL (0.0-0.2) Prothrombin Time 14.1SEC (11.7-14.0) Prothromb Time International Ratio 1.2 (0.8-1.1) Sodium Level 135mmol/L (136-145) 134mmol/L (136-145) 133mmol/L (136-145) Potassium Level 3.4mmol/L (3.5-5.1) 3.1mmol/L (3.5-5.1) 3.4mmol/L (3.5-5.1) Chloride Level 92mmol/L (98-107) 94mmol/L (98-107) 95mmol/L (98-107) Carbon Dioxide Level 40mmol/L (21-32) 35mmol/L (21-32) 36mmol/L (21-32) Anion Gap 3 (6-14) 5 (6-14) 2 (6-14) Blood Urea Nitrogen 11mg/dL (8-26) 9mg/dL (8-26) 14mg/dL (8-26) Creatinine 0.6mg/dL (0.7-1.3) 0.6mg/dL (0.7-1.3) 0.7mg/dL (0.7-1.3) Estimated GFR (Cockcroft-Gault) 132.4 132.4 110.9 BUN/Creatinine Ratio 18 (6-20) Glucose Level 89mg/dL (70-99) 86mg/dL (70-99) 89mg/dL (70-99) Calcium Level 8.7mg/dL (8.5-10.1) 8.7mg/dL (8.5-10.1) 8.8mg/dL (8.5-10.1) Total Bilirubin 0.9mg/dL (0.2-1.0) Aspartate Amino Transf (AST/SGOT) 18U/L (15-37) Alanine Aminotransferase (ALT/SGPT) 12U/L (16-63) Alkaline Phosphatase 52U/L (46-116) Creatine Kinase 107U/L (39-308) Troponin I Quantitative < 0.017ng/mL (0.000-0.055) Total Protein 6.4g/dL (6.4-8.2) Albumin 2.9g/dL (3.4-5.0) Albumin/Globulin Ratio 0.8 (1.0-1.7) Vitamin B12 Level 452pg/mL (211-946) 25-Hydroxy Vitamin D Total 41.4ng/mL (30.0-100.0) Thyroid Stimulating Hormone (TSH) 0.744uIU/mL (0.358-3.74) Urine Collection Type Unknown Urine Color [place] Urine Clarity Clear Urine pH 7.0 Urine Specific [place] 1.025 Urine Protein Negativemg/dL (NEG-TRACE) Urine Glucose (UA) Negativemg/dL (NEG) Urine Ketones (Stick) 15mg/dL (NEG) Urine Blood Negative (NEG) Urine Nitrite Negative (NEG) Urine Bilirubin Small (NEG) Urine Urobilinogen Dipstick 4.0mg/dL (0.2 mg/dL) Urine Leukocyte Esterase Small (NEG) Urine RBC 0/HPF (0-2) Urine WBC 0/HPF (0-4) Urine Squamous Epithelial Cells Few/LPF Urine Bacteria 0/HPF (0-FEW) Triglycerides Level 53mg/dL (0-150) Cholesterol Level 186mg/dL (0-200) LDL Cholesterol, Calculated 121mg/dL (0-100) VLDL Cholesterol, Calculated 11mg/dL (0-40) HDL Cholesterol 54mg/dL (40-60) Cholesterol/HDL Ratio 3.4 Laboratory Tests Test 12/04/16 04:10 White Blood Count 3.6x10^3/uL (4.0-11.0) Red Blood Count 4.31x10^6/uL (4.30-5.70) Hemoglobin 13.3g/dL (13.0-17.5) Hematocrit 39.7% (39.0-53.0) Mean Corpuscular Volume 92fL (79-100) Mean Corpuscular Hemoglobin 31pg (25-35) Mean Corpuscular Hemoglobin Concent 33g/dL (31-37) Red Cell Distribution Width 14.3% (11.5-14.5) Platelet Count 97x10^3/uL (140-400) Neutrophils (%) (Auto) 62% (31-73) Lymphocytes (%) (Auto) 22% (24-48) Monocytes (%) (Auto) 15% (0-9) Eosinophils (%) (Auto) 1% (0-3) Basophils (%) (Auto) 1% (0-3) Neutrophils # (Auto) 2.2x10^3uL (1.8-7.7) Lymphocytes # (Auto) 0.8x10^3/uL (1.0-4.8) Monocytes # (Auto) 0.5x10^3/uL (0.0-1.1) Eosinophils # (Auto) 0.1x10^3/uL (0.0-0.7) Basophils # (Auto) 0.0x10^3/uL (0.0-0.2) Sodium Level 133mmol/L (136-145) Potassium Level 3.4mmol/L (3.5-5.1) Chloride Level 95mmol/L (98-107) Carbon Dioxide Level 36mmol/L (21-32) Anion Gap 2 (6-14) Blood Urea Nitrogen 14mg/dL (8-26) Creatinine 0.7mg/dL (0.7-1.3) Estimated GFR (Cockcroft-Gault) 110.9 Glucose Level 89mg/dL (70-99) Calcium Level 8.8mg/dL (8.5-10.1) Microbiology 12/02/16 Urine Culture - Final, Complete 12/02/16 Urine Culture Result 1 (MICHAEL) - Final, Complete Medications Current Medications Ondansetron HCl (Zofran) 4 mg PRN Q8HRS PRN IV NAUSEA/VOMITING; Start 12/02/16 at 12:30; Stop 12/03/16 at 12:29; Status DC Acetaminophen (Tylenol) 650 mg PRN Q4HRS PRN PO FEVER; Start 12/02/16 at 12:30; Stop 12/03/16 at 12:29; Status DC Potassium Chloride (Klor-Con) 40 meq 1X ONCE PO Last administered on 12/02/16 17:53; Start 12/02/16 at 16:30; Stop 12/02/16 at 16:31; Status DC Albuterol/ Ipratropium (Duoneb) 3 ml RTQID NEB Last administered on 12/04/16 08:30; Start 12/02/16 at 20:00 Brimonidine Tartrate (Alphagan) 1 drop BID OU Last administered on 12/04/16 09 :40; Start 12/02/16 at 21:00 Bupropion HCl (Wellbutrin) 75 mg DAILY PO Last administered on 12/04/16 09:49 ; Start 12/03/16 at 09:00 Dorzolamide HCl (Trusopt) 1 drop BID OU Last administered on 12/04/16 09:40; Start 12/02/16 at 21:00 Finasteride (Proscar) 5 mg DAILY PO Last administered on 12/04/16 09:49; Start 12/03/16 at 09:00 Gabapentin (Neurontin) 100 mg QID PO Last administered on 12/04/16 09:49; Start 12/02/16 at 21:00 Hydrochlorothiazide (Microzide) 12.5 mg DAILY PO Last administered on 09:47; Start 12/02/16 at 20:00 Latanoprost (Xalatan) 1 drop QHS OU Last administered on 12/03/16 20:53; Start 12/02/16 at 21:00 Lidocaine (Lidoderm) 1 patch DAILY TP Last administered on 12/04/16 09:41; Start 12/03/16 at 09:00 Senna/Docusate Sodium (Senna Plus) 1 tab DAILY PO Last administered on 09:47; Start 12/03/16 at 09:00 Non-Formulary Medication 1 puff PRN Q6HRS PRN INH SHORTNESS OF BREATH; Start at 19:00; Stop 12/02/16 at 19:13; Status DC Non-Formulary Medication 2 puff BID IH ; Start 12/02/16 at 21:00; Stop 12/02/16 at 21:00; Status DC Carvedilol (Coreg) 25 mg BIDWMEALS PO Last administered on 12/04/16 09:47; Start 12/02/16 at 20:00 Duloxetine HCl (Cymbalta) 60 mg DAILY PO Last administered on 12/04/16 09:47; Start 12/03/16 at 09:00 Losartan Potassium (Cozaar) 100 mg DAILY PO Last administered on 12/04/16 09: 46; Start 12/02/16 at 20:00 Nicotine Polacrilex (Nicorette Gum) 1 each PRN Q1HR PRN BC SMOKING CESSATION; Start 12/02/16 at 19:15 Nifedipine (Procardia Xl) 30 mg BID PO Last administered on 12/04/16 09:48; Start 12/02/16 at 21:00 Valproic Acid (Depakene) 500 mg DAILY PO Last administered on 12/04/16 09:51; Start 12/03/16 at 09:00 Valproic Acid (Depakene) 750 mg QHS PO Last administered on 12/03/16 20:53; Start 12/02/16 at 21:00 Albuterol Sulfate (Ventolin Neb Soln) 2.5 mg RTQID NEB ; Start 12/02/16 at 20:00 ; Status UNV Albuterol Sulfate (Ventolin Neb Soln) 2.5 mg PRN Q6HRS PRN NEB SHORTNESS OF BREATH; Start 12/02/16 at 19:15 Budesonide (Pulmicort) 0.5 mg RTBID NEB Last administered on 12/04/16 08:31; Start 12/02/16 at 20:00 Simvastatin (Zocor) 20 mg HS PO Last administered on 12/03/16t 20:53; Start 12/03 at 21:00 Active Scripts Active Reported Aspirin Buffered 325 Mg Tab (Aspirin/Calcium Carbonate/Mag) 325 Mg Tablet 325 Mg PO DAILY Bupropion Hcl 75 Mg Tablet 0.5 Tab PO DAILY Dorzolamide Hcl 10 Ml Drops 1 Drop EACHEYE BID Symbicort 160-4.5 Mcg Inhaler (Budesonide/Formoterol Fumarate) 10.2 Gm Hfa.aer.ad 2 Puff IH BID Brimonidine Tartrate 5 Ml Drops 5 Ml OP Proair Hfa Inhaler (Albuterol Sulfate) 8.5 Gm Hfa.aer.ad 1 Puff INH PRN Q6HRS PRN Latanoprost 2.5 Ml Drops 1 Drop EACHEYE QHS Valproic Acid (Valproate Sodium) 250 Mg/5 Ml Disp.syrin 500 Mg PO DAILY Valproic Acid (Valproate Sodium) 250 Mg/5 Ml Disp.syrin 750 Mg PO QHS Nitrostat (Nitroglycerin) 0.4 Mg Tab.subl 1 Tab SL UD Nifedipine Er (Nifedipine) 30 Mg Tablet.er 1 Tab PO BID Nicotine Gum (Nicotine Polacrilex) 4 Mg Gum 4 Mg BC Q1HR PRN Losartan Potassium 100 Mg Tablet 100 Mg PO DAILY Lidocaine 700 Mg Adh..patch 700 Mg TP Hydrochlorothiazide Capsule (Hydrochlorothiazide) 12.5 Mg Capsule 2 Cap PO DAILY Gabapentin 100 Mg Capsule 100 Mg PO QID Finasteride 5 Mg Tablet 1 Tab PO DAILY Duloxetine Hcl 60 Mg Capsule.dr 60 Mg PO DAILY Sennosides-Docusate Sodium Tab (Sennosides/Docusate Sodium) 1 Each Tablet 1 Each PO Vitamin D3 (Cholecalciferol (Vitamin D3)) 1,000 Unit Tablet 1 Tab PO DAILY Carvedilol 25 Mg Tablet 1 Tab PO BID Vitals/I & O Vital Sign - Last 24 Hours 12/03/16 12/03/16 12/03/16 12/03/16 11:57 15:00 15:52 17:49 Temp 97.9 97.9 Pulse 73 73 Resp 18 B/P 104/60 104/60 Pulse Ox 94 96 94 O2 Delivery Nasal Cannula Nasal Cannula O2 Flow Rate 3.0 3.0 12/03/16 12/03/16 12/03/1617 19:22 20:00 20:56 21:05 Temp 97.5 97.5 Pulse 79 76 Resp 18 B/P 127/61 131/68 Pulse Ox 93 95 O2 Delivery Room Air Nasal Cannula O2 Flow Rate 3.0 3.0 12/03/16 12/04/16 12/04/16 12/04/16 23:28 02:41 07:00 08:00 Temp 97.6 98.1 97.7 97.6 98.1 97.7 Pulse 70 76 75 Resp 18 18 18 B/P 131/76 127/71 132/76 Pulse Ox 96 95 97 O2 Delivery Room Air Nasal Cannula Nasal Cannula O2 Flow Rate 3.0 3.0 3.0 12/04/16 12/04/16 12/04/16 12/04/16 08:30 09:46 09:47 09:48 Pulse 75 75 75 B/P 132/76 132/76 132/76 Pulse Ox 95 O2 Delivery Nasal Cannula O2 Flow Rate 4.0 Intake and Output 12/03/16 12/03/16 12/04/16 15:00 23:00 07:00 Intake Total 220 ml 440 ml Balance 220 ml 440 ml SHERRON LEE III DO Dec 04, 2016 11:24
[2016-12-04] MEDS ORDERED: SIMV20TA3 PO (14:20)
[2016-12-04] MEDS ORDERED: ASPI325T70 PO (14:21)
--- NOTE | 2016-12-04 14:43 | PDOC ---
PROGRESS NOTES Assessment Assessment Worsening of right side weakness. Metabolic encephalopathy. Confusion. 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 Carotid A stenosis 40% or less. HTN HLD COPD O2 dependent. Chronic neck and back pain. Right maxillary and ethmoid sinusitis. RECOMMENDATIONS/PLAN: Continue ASA 325 mg daily. Continue Zocor 20 mg HS. Treat medical diseases. MRI is contraindicated due to pacemaker. OT/PT. Discussed with his and son-in-law at bedside on 12/02. 2 HCTs: No acute findings. HISTORY OF THE PRESENT ILLNESS: 71-y-old male patient with above medical diseases and old stroke with right side hemiparesis per his . He can walk with walker usually, but he was unable to get up this morning due to increased weakness in his right side UE and LE. He was also noted by his to have mental status changes, confusion, and difficulty speaking to be brought to the ER. No new cranial nerve deficits. He is not a candidate of TPA due to onset time of symptoms was unknown. He stated he has been doing better since 12/03. PAST MEDICAL HISTORY: Please see above. PAST SURGERY HISTORY: Pacemaker Placement Hernia Repair, ALLERGY: Reviewed. MEDICATIONS: Refer to [facility] FAMILY HISTORY: Non contributory. SOCIAL HISTORY: Lives at home. Denies current smoking, drinking, and illicit drug use. REVIEW OF SYSTEMS: Constitutional: No malnutrition, weight loss, cachexia. Head: No traumatic brain or head injury. Skin: No edema, or rash. Ear: No infection, tinnitus. Eyes: No vision loss or color blindness. Nose: No bleeding or purulent discharges. Hearing: Hearing decrease. Neck: Neck pain. Cardiac: Pacemaker Placement Pulmonary: No COPD. GI: No GI ulcer, GI bleeding. Urinary/genital: UTI. Endocrinologic: No cousin face, craniofacial dysmorphism, polydactyly, goiter Skeletomuscular: Chronic right side weakness. Neurological: see HP. Psychiatric: Denies drug use/abuse. Otherwise, not [id number] review of systems. PHYSICAL EXAMINATION: General appearance is in no acute distress. HEENT: Normocephalic and nontraumatic. Eyes, nose, ears, and throat are unremarkable. Neck is supple. No lymphadenopathy. No bruits are heard over the carotid artery. No crepitus. Cardiovascular: S1, S2, regular rate and rhythm. Pulmonary: Clear to auscultation bilaterally. Abdomen: Bowel sounds are positive. Extremities: No rash, lesions, or edema. No restriction of range of motion NEUROLOGICAL EXAMINATION: Awake. Sitting in chair. Not fully oriented to time, but knows place and person. PERRL. EOMI. CN: no focal findings. Muscle tone: Mildly increased. Muscle strength: 5-. DTR: 2- Plantar reflex: Neutral response bilaterally Gait: not examined in bed. Sensory exam: no acute abnormal findings. No obvious cerebellar signs elicited. Not able to perform F-T-N test. Objective Objective Vital Signs Date Time Temp Pulse Resp B/P Pulse Ox O2 Delivery O2 Flow Rate FiO2 12/04/16 13:03 96 Nasal Cannula 4.0 12/04/16 11:00 98.1 76 18 108/69 98.1 Intake and Output 12/04/16 07:00 Intake Total 660 ml Balance 660 ml Intake Oral 660 ml # Voids 6 # Bowel Movements 1 Vitals Signs Vitals VS - Last 72 Hours, by Label Date Time Temp Pulse Resp B/P Pulse Ox O2 Delivery O2 Flow Rate FiO2 12/04/16 13:03 96 Nasal Cannula 4.0 12/04/16 11:00 98.1 76 18 108/69 98 Nasal Cannula 3.0 98.1 12/04/16 09:48 75 132/76 12/04/16 09:47 75 132/76 12/04/16 09:46 75 132/76 12/04/16 08:30 95 Nasal Cannula 4.0 12/04/16 08:00 3.0 12/04/16 07:00 97.7 75 18 132/76 97 Nasal Cannula 3.0 97.7 12/04/16 02:41 98.1 76 18 127/71 95 Nasal Cannula 3.0 98.1 12/03/16 23:28 97.6 70 18 131/76 96 Room Air 97.6 12/03/16 21:05 95 Nasal Cannula 3.0 12/03/16 20:56 76 131/68 12/03/16 20:00 3.0 12/03/16 19:22 97.5 79 18 127/61 93 Room Air 97.5 12/03/16 17:49 73 104/60 12/03/16 15:52 94 Nasal Cannula 3.0 12/03/16 15:00 97.9 73 18 104/60 96 97.9 12/03/16 11:57 94 Nasal Cannula 3.0 12/03/16 11:00 97.5 70 18 179/89 96 Nasal Cannula 2.0 97.5 12/03/16 10:43 70 158/81 12/03/16 10:43 70 158/81 12/03/16 10:43 70 158/81 12/03/16 08:00 3.0 12/03/16 07:23 94 Nasal Cannula 3.0 12/03/16 07:00 96.8 70 18 158/81 96 Nasal Cannula 2.0 96.8 Laboratory Laboratory Laboratory Tests Test 12/04/16 04:10 White Blood Count 3.6x10^3/uL (4.0-11.0) Red Blood Count 4.31x10^6/uL (4.30-5.70) Hemoglobin 13.3g/dL (13.0-17.5) Hematocrit 39.7% (39.0-53.0) Mean Corpuscular Volume 92fL (79-100) Mean Corpuscular Hemoglobin 31pg (25-35) Mean Corpuscular Hemoglobin Concent 33g/dL (31-37) Red Cell Distribution Width 14.3% (11.5-14.5) Platelet Count 97x10^3/uL (140-400) Neutrophils (%) (Auto) 62% (31-73) Lymphocytes (%) (Auto) 22% (24-48) Monocytes (%) (Auto) 15% (0-9) Eosinophils (%) (Auto) 1% (0-3) Basophils (%) (Auto) 1% (0-3) Neutrophils # (Auto) 2.2x10^3uL (1.8-7.7) Lymphocytes # (Auto) 0.8x10^3/uL (1.0-4.8) Monocytes # (Auto) 0.5x10^3/uL (0.0-1.1) Eosinophils # (Auto) 0.1x10^3/uL (0.0-0.7) Basophils # (Auto) 0.0x10^3/uL (0.0-0.2) Sodium Level 133mmol/L (136-145) Potassium Level 3.4mmol/L (3.5-5.1) Chloride Level 95mmol/L (98-107) Carbon Dioxide Level 36mmol/L (21-32) Anion Gap 2 (6-14) Blood Urea Nitrogen 14mg/dL (8-26) Creatinine 0.7mg/dL (0.7-1.3) Estimated GFR (Cockcroft-Gault) 110.9 Glucose Level 89mg/dL (70-99) Calcium Level 8.8mg/dL (8.5-10.1) Microbiology 12/02/16 Urine Culture - Final, Complete 12/02/16 Urine Culture Result 1 (MICHAEL) - Final, Complete Medication Medications Current Medications Simvastatin (Zocor) 20 mg HS PO Last administered on 12/03/16t 20:53; Start 12/03 at 21:00 Comment Review of Relevant I have reviewed the following items shahida (where applicable) has been applied. AMRITA CANSECO MD Dec 04, 2016 14:42
[2016-12-04 15:00] VITALS: BP 154/85
[2016-12-04 17:37] VITALS: BP 154/85
--- NOTE | 2016-12-05 01:15 | EEG ---
DATE OF SERVICE: 12/03/2016 EEG NUMBER: [id number] OBJECTIVE: This is a 71-year-old male patient with history of mental status changes and confusion. EEG was requested to evaluate cerebral activity and help rule out subclinical seizure. METHODS: Twenty electrodes were applied according to the international 10-20 electrode placement system. EKG monitoring, hyperventilation, intermittent photic stimulation, monopolar and bipolar montages are routinely utilized. The record was obtained on a digital system with video monitoring. FINDINGS: 1. Background: The patient was recorded in the awake, drowsy and sleep states. The overall background amplitude is 5-10 microvolts. No well organized posterior dominant rhythm is observed. Occasionally 6 Hz/sec activity is observed. The overall background rhythm is with diffuse slowing in theta and delta frequencies. 2. Abnormalities: No specific epileptiform discharge or electrographic seizure is seen. Diffuse slowing in theta and delta frequencies is throughout the entire recording. 3. Activation: Hyperventilation was not performed because the patient was unable to perform the technique or follow the commands. Intermittent photic stimulation was performed with insignificant photic driving. IMPRESSION: This EEG is an abnormal study for the awake, drowsy and sleep states. No well organized posterior dominant rhythm is observed. Occasionally 6 Hz is observed. There is diffuse slowing in theta and delta frequencies throughout the entire recording. No focal, lateralizing, specific epileptiform discharge or electrographic seizure is seen. This pattern of EEG is suggestive of diffuse encephalopathy. AMRITA CANSECO MD DR: NISHA/kathryn JOB#: [id number] / [id number] ADAM
== END 2016-12-04 17:55 | disposition home health service (06) | DRG 71 ==
LOC: ER 10:31 → 6 SOUTH 12:30
PROVIDERS: ADMIT Internal Medicine; ATTEND Internal Medicine
DX: G93.41 Metabolic encephalopathy (principal); I69.351 Hemiplegia and hemiparesis following cerebral infarction affecting right dominant side; R53.1 Weakness; E78.5 Hyperlipidemia, unspecified; F32.9 Major depressive disorder, single episode, unspecified; G89.29 Other chronic pain; H40.9 Unspecified glaucoma; I10 Essential (primary) hypertension; J32.0 Chronic maxillary sinusitis; J32.2 Chronic ethmoidal sinusitis; J44.9 Chronic obstructive pulmonary disease, unspecified; N40.0 Benign prostatic hyperplasia without lower urinary tract symptoms; Z74.01 Bed confinement status; Z79.82 Long term (current) use of aspirin; Z95.0 Presence of cardiac pacemaker; Z99.81 Dependence on supplemental oxygen; Z87.891 Personal history of nicotine dependence
CPT/HCPCS: 99285; C8929; 36415; 70450; 71010; 80048; 80053; 80061; 81001; 82306; 82550; 82607; 84443; 84484; 85027; 85610; 87086; 93005; 93880; 94250; 94640; 95816; J7620; 92610; 97116; 97535

== ENCOUNTER 2016-12-28 16:51 | Emergency (ER) | payer MEDICARE ==
[~2016-12-28] VITALS: Ht 177.8 cm; Wt 81.6 kg
[~2016-12-28 16:51] MED LIST: ASPI325T70 PO; BRIM5DRO4 OP; BUDE10.2 IH; BUPR75TA6 PO; CARV25TA2 PO; CHOL10003 PO; DORZ10DR3 EACHEYE; DULO60CA44 PO; FINA5TAB4 PO; GABA-585 PO; HYDR12.53 PO; LATA2.5D3 EACHEYE; LIDO700A27 TP; LOSA100T6 PO; NICO4GUM3 BC; NIFE30TA9 PO; NITR0.4T SL; PROAIR HFA8.5 GM INH; SENN1TAB37 PO; SIMV20TA3 PO; VALP250D PO
[2016-12-28 18:16] LABS: BASO % 1 % (0-3); EOS % 1 % (0-3); HEMATOCRIT 34.9 % (39.0-53.0); HEMOGLOBIN 11.7 g/dL (13.0-17.5); LYMPH # 1.2 x10^3/uL (1.0-4.8); LYMPH % 32 % (24-48); MEAN CORPUSCULAR HEMOGLOBIN 31 pg (25-35); MEAN CORPUSCULAR HGB CONC 34 g/dL (31-37); MEAN CORPUSCULAR VOLUME 92 fL (79-100); MONO % 16 % (0-9); NEUT % 49 % (31-73); PLATELET COUNT 92 x10^3/uL (140-400); RED BLOOD COUNT 3.77 x10^6/uL (4.30-5.70); RED CELL DISTRIBUTION WIDTH 14.2 % (11.5-14.5); WHITE BLOOD COUNT 3.8 x10^3/uL (4.0-11.0)
[2016-12-28 18:21] VITALS: BP 133/85
--- NOTE | 2016-12-28 18:31 | EKG ---
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
[2016-12-28 18:33] LABS: INR 1.2 (0.8-1.1); PROTHROMBIN TIME PATIENT 14.3 SEC (11.7-14.0)
--- NOTE | 2016-12-28 18:33 | PHYS DOC ---
Past Medical History Past Medical History: COPD, CVA, Dementia, Hypertension, Other Additional Past Medical Histor: emphysema, home o2, falls, chronic back and neck pain Past Surgical History: Pacemaker, Other Additional Past Surgical Histo: hernia repair, ankle sx, back and neck sx Alcohol Use: None Drug Use: None Adult General Chief Complaint Chief Complaint: ALTERED MENTAL STATUS HPI HPI Patient is a 71 year old male who presents to the emergency department for evaluation of altered mental status. Prior to arrival the patient was found reportedly unresponsive by his neighbor who called the 911. Upon EMS arrival the patient was found awake on his living room floor. The patient was unable to provide any history of events and did not know how he ended up on the floor. The patient was brought to the emergency department for further evaluation. Family present in the room states that the patient has been suffering from confusion and was recently diagnosed with Lewy body dementia through the [facility]. The patient has not had any recent fevers and is not complaining of any other symptoms at this time. Review of Systems Review of Systems Constitutional: Denies fever or chills [] Eyes: Denies change in visual acuity, redness, or eye pain [] HENT: Denies nasal congestion or sore throat [] Respiratory: Denies cough or shortness of breath [] Cardiovascular: Denies chest pain or edema [] GI: Denies abdominal pain, nausea, vomiting, bloody stools or diarrhea [] : Denies dysuria or hematuria [] Musculoskeletal: Denies back pain or joint pain [] Integument: Denies rash or skin lesions [] Neurologic: Altered mental status, Denies headache, focal weakness or sensory changes [] Endocrine: Denies polyuria or polydipsia [] Current Medications Current Medications Current Medications Medications (Trade) Dose Ordered Sig/Checo Start Time Stop Time Status Last Admin Dose Admin Potassium Chloride (Klor-Con) 40 meq 1X ONCE 12/28/16 19:00 12/28/16 19:01 DC 12/28/16 19:21 40 MEQ Allergies Allergies Allergies Coded Allergies Type Severity Reaction Last Updated Verified No Known Drug Allergies 03/08/14 No Physical Exam Physical Exam Constitutional: Alert, afebrile, no acute distress. [] HENT: Normocephalic, atraumatic, bilateral external ears normal, oropharynx moist, no oral exudates, nose normal. [] Eyes: PERRLA, EOMI, conjunctiva normal, no discharge. [] Neck: Normal range of motion, no tenderness, supple, no stridor. [] Cardiovascular:Heart rate regular rhythm, no murmur [] Lungs & Thorax: Bilateral breath sounds clear to auscultation [] Abdomen: Bowel sounds normal, soft, no tenderness, no masses, no pulsatile masses. [] Skin: Warm, dry, no erythema, no rash. [] Back: No tenderness, no CVA tenderness. [] Extremities: No tenderness, no cyanosis, no clubbing, ROM intact, no edema. [] Neurologic: Alert and oriented to person and place only, normal motor function, normal sensory function, no focal deficits noted. [] Current Patient Data Vital Signs Vital Signs Date Time Temp Pulse Resp B/P Pulse Ox O2 Delivery O2 Flow Rate FiO2 12/28/16 18:21 76 20 133/85 97 Nasal Cannula 3 12/28/16 16:55 98.7 98.7 Lab Values Laboratory Tests Test 12/28/16 18:05 12/28/16 18:15 White Blood Count 3.8x10^3/uL (4.0-11.0) L Red Blood Count 3.77x10^6/uL (4.30-5.70) L Hemoglobin 11.7g/dL (13.0-17.5) L Hematocrit 34.9% (39.0-53.0) L Mean Corpuscular Volume 92fL (79-100) Mean Corpuscular Hemoglobin 31pg (25-35) Mean Corpuscular Hemoglobin Concent 34g/dL (31-37) Red Cell Distribution Width 14.2% (11.5-14.5) Platelet Count 92x10^3/uL (140-400) L Neutrophils (%) (Auto) 49% (31-73) Lymphocytes (%) (Auto) 32% (24-48) Monocytes (%) (Auto) 16% (0-9) H Eosinophils (%) (Auto) 1% (0-3) Basophils (%) (Auto) 1% (0-3) Neutrophils # (Auto) 1.9x10^3uL (1.8-7.7) Lymphocytes # (Auto) 1.2x10^3/uL (1.0-4.8) Monocytes # (Auto) 0.6x10^3/uL (0.0-1.1) Eosinophils # (Auto) 0.1x10^3/uL (0.0-0.7) Basophils # (Auto) 0.0x10^3/uL (0.0-0.2) Prothrombin Time 14.3SEC (11.7-14.0) H Prothrombin Time INR 1.2 (0.8-1.1) H PTT 30SEC (24-38) Sodium Level 136mmol/L (136-145) Potassium Level 2.9mmol/L (3.5-5.1) *L Chloride Level 96mmol/L (98-107) L Carbon Dioxide Level 39mmol/L (21-32) H Anion Gap 1 (6-14) L Blood Urea Nitrogen 16mg/dL (8-26) Creatinine 0.7mg/dL (0.7-1.3) Estimated GFR (Cockcroft-Gault) 110.9 BUN/Creatinine Ratio 23 (6-20) H Glucose Level 119mg/dL (70-99) H Calcium Level 8.8mg/dL (8.5-10.1) Magnesium Level 1.9mg/dL (1.8-2.4) Total Bilirubin 0.4mg/dL (0.2-1.0) Aspartate Amino Transferase (AST) 16U/L (15-37) Alanine Aminotransferase (ALT) 10U/L (16-63) L Alkaline Phosphatase 52U/L (46-116) Creatine Kinase 82U/L (39-308) Creatine Kinase MB (Mass) 1.3ng/mL (0.0-3.6) Creatine Kinase MB Relative Index 1.6% (0-4) Troponin I Quantitative < 0.017ng/mL (0.000-0.055) CD-Err-P-Type Natriuretic Peptide 255pg/mL (0-124) H Total Protein 6.1g/dL (6.4-8.2) L Albumin 2.9g/dL (3.4-5.0) L Albumin/Globulin Ratio 0.9 (1.0-1.7) L Urine Collection Type Unknown Urine Color Yellow Urine Clarity Clear Urine pH 6.5 Urine Specific [place] 1.010 Urine Protein Negativemg/dL (NEG-TRACE) Urine Glucose (UA) Negativemg/dL (NEG) Urine Ketones (Stick) Negativemg/dL (NEG) Urine Blood Negative (NEG) Urine Nitrite Negative (NEG) Urine Bilirubin Negative (NEG) Urine Urobilinogen Dipstick 1.0mg/dL (0.2 mg/dL) Urine Leukocyte Esterase Negative (NEG) Urine RBC 0/HPF (0-2) Urine WBC 0/HPF (0-4) Urine Bacteria 0/HPF (0-FEW) Urine Hyaline Casts Few/HPF Laboratory Tests 12/28/16 18:05 Laboratory Tests 12/28/16 18:05 EKG EKG Interpreted by me: Heart rate 75, sinus rhythm, left axis deviation, right bundle branch block, no acute ST elevations or depressions [] Radiology/Procedures Radiology/Procedures One view AP chest x-ray interpreted by me: Mild bilateral lower lobe atelectasis , no infiltrate, no effusion, normal cardiac silhouette [] Course & Med Decision Making Course & Med Decision Making Pertinent Labs and Imaging studies reviewed. (See chart for details) The patient was given oral potassium in the emergency department which she was able to tolerate without difficulty. Patient ambulated with use of walker in the emergency department without difficulty. Spoke with the patient's family who state that they would like to take the patient home and feel comfortable with caring for the patient and his current living situation. I do not feel this to be unreasonable. Advise follow-up in 3-4 days with patient's primary physician and recommended return to the emergency department for any worsening symptoms. Patient's and daughter voiced understanding and in agreement with treatment plan. Dragon Disclaimer Dragon Disclaimer This electronic medical record was generated, in whole or in part, using a voice recognition dictation system. Departure Departure Impression: Primary Impression: Confusion Additional Impressions: Hypokalemia Lewy body dementia Disposition: 01 HOME, SELF-CARE Condition: IMPROVED Referrals: [facility] (PCP) Patient Instructions: Dementia With Lewy Bodies, Hypokalemia Additional Instructions: Follow-up with your primary doctor in the next 3-5 days. Be sure not to miss any meals and return to emergency department for any worsening symptoms. Problem Qualifiers Additional Impressions: Lewy body dementia Dementia behavioral disturbance: with behavioral disturbance Qualified Code: G31.83 - Dementia with Lewy bodies RICARDO ADAN MD Dec 28, 2016 18:33
[2016-12-28 18:36] LABS: BACTERIA,URINE 0 /HPF (0-FEW); BILIRUBIN,URINE NEGATIVE (NEG); GLUCOSE,URINE NEGATIVE (NEG); NITRITE,URINE NEGATIVE (NEG); PH,URINE 6.5; PROTEIN,URINE NEGATIVE (NEG-TRACE); RBC,URINE 0 /HPF (0-2); WBC,URINE 0 /HPF (0-4)
[2016-12-28 18:48] LABS: ALBUMIN 2.9 g/dL (3.4-5.0); ALBUMIN/GLOBULIN RATIO 0.9 (1.0-1.7); CALCIUM 8.8 mg/dL (8.5-10.1); CREATININE 0.7 mg/dL (0.7-1.3); GFR 110.9; MAGNESIUM 1.9 mg/dL (1.8-2.4); TOTAL BILIRUBIN 0.4 mg/dL (0.2-1.0); TOTAL PROTEIN 6.1 g/dL (6.4-8.2)
[2016-12-28 18:50] LABS: POTASSIUM 2.9 mmol/L (3.5-5.1)
[2016-12-28 18:56] LABS: CKMB INDEX 1.6 % (0-4); CKMB MASS 1.3 ng/mL (0.0-3.6)
--- NOTE | 2016-12-28 18:58 | RAD ---
PROCEDURE CT head without contrast. HISTORY Patient was found unconscious, history of TIA TECHNIQUE Helical CT imaging of the brain is performed without IV contrast. PQRS: One or more the following individualized dose reductio CT head without contrast from n techniques were utilized for the study: 1. Automated exposure control. 2. Adjustment of the mA and/or kV according to patient size. 3. Use of iterative reconstruction technique. COMPARISON 03/08/2014 FINDINGS Prominence of cortical sulci and ventricular system is noted consistent with age related atrophy. There is no midline shift or mass effect. No extra-axial fluid collection or intraparenchymal hemorrhage. Brantley-white matter differentiation is preserved. The visualized paranasal sinuses and mastoid air cells are clear. The globes and orbits appear intact. No acute calvarial abnormality. IMPRESSION No acute intracranial abnormality. Age related atrophy is noted. Electronically signed by: Cary Bella MD (Dec 28, 2016 18:57:44)
[2016-12-28] MEDS ORDERED: POTASSIUM CHLORIDE 20 MEQ TABLET.ER. PO ONE (19:00)
--- NOTE | 2016-12-29 08:04 | RAD ---
EXAM: Chest one view. HISTORY: Shortness of breath, hypoxia. COMPARISON: 12/02/2016. FINDINGS: A frontal view of the chest is obtained. A left-sided pacemaker has its leads in the right atrium and right ventricle. Lower cervical instrumented anterior cervical discectomy and fusion is partially visualized. There are no confluent infiltrates. There is mild atelectasis in the bases. There is no pneumothorax or pleural effusion. Calcified mediastinal lymph nodes are likely secondary to old granulomatous disease. The heart is not enlarged. There are atherosclerotic calcifications of the aorta. There are chronic healed left rib fractures. IMPRESSION: 1. No confluent infiltrates.
== END 2016-12-28 20:50 | disposition home or self-care (01) ==
LOC: ER 16:51
DX: R41.0 Disorientation, unspecified (principal); E87.6 Hypokalemia; G31.83 Neurocognitive disorder with Lewy bodies; F02.80 Dementia in other diseases classified elsewhere, unspecified severity, without behavioral disturbance, psychotic disturbance, mood disturbance, and anxiety; J44.9 Chronic obstructive pulmonary disease, unspecified; Z86.73 Personal history of transient ischemic attack (TIA), and cerebral infarction without residual deficits; I10 Essential (primary) hypertension; G89.29 Other chronic pain; Z95.0 Presence of cardiac pacemaker
CPT/HCPCS: 36415; 36600; 70450; 71010; 80053; 81001; 82553; 83735; 83880; 84484; 85027; 85610; 85730; 93005; 99285-25